=== PATIENT | male | born 1925 | race Caucasian/White ===

== ENCOUNTER 2016-06-22 16:36 | Emergency (ER) | payer OTHER ==
[2016-06-22 16:45] VITALS: TEMP 97.9
--- NOTE | 2016-06-22 17:01 | CPEKG ---
Heart Rate: 51 RR Interval: 1176 P-R Interval: 188 QRSD Interval: 92 QT Interval: 440 QTC Interval: 406 P [place]: 17 QRS [place]: -4 T Wave [place]: 191 EKG Severity - ABNORMAL ECG - EKG Impression: SINUS RHYTHM EKG Impression: MULTIFORM VENTRICULAR PREMATURE COMPLEXES EKG Impression: NONSPECIFIC T ABNORMALITIES, LATERAL LEADS Electronically Signed By: Darin Valentine 23-Jun-2016 14:22:51
[2016-06-22 17:21] LABS: % IMMATURE GRANULYOCYTES 0.3 % (0.0-1.1); ABSOLUTE IMMATURE GRANULOCYTES 0.02 10^3/uL (0.00-0.10); ADD DIFF? NO; ADD MORPH? NO; ADD SCAN? NO; ATYPICAL LYMPHOCYTE FLAG 10 (0-99); FRAGMENT RBC FLAG 0 (0-99); HEMATOCRIT 37.8 % (40.0-51.0); HEMOGLOBIN 12.7 g/dL (13.7-17.5); LEFT SHIFT FLG 0 (0-99); LIPEMIA HEMOLYSIS FLAG 80 (0-99); MEAN CELL HEMOGLOBIN 31.4 pg (27.9-34.1); MEAN CELL HEMOGLOBIN CONCENTR. 33.6 g/dL (32.4-36.7); MEAN CELL VOLUME 93.6 fL (81.5-99.8); MEAN PLATELET VOLUME 11.7 fL (8.7-11.7); PLATELET CLUMPS FLAG 10 (0-99); PLATELET COUNT 141 10^3/uL (150-400); RED BLOOD CELL COUNT 4.04 10^6/uL (4.40-6.38); RED CELL DISTRIBUTION WIDTH 14.7 % (11.5-15.2)
[2016-06-22 17:33] LABS: CALCIUM 8.4 mg/dL (8.5-10.4); CREATININE 1.3 mg/dL (0.7-1.3); POTASSIUM 4.6 mEq/L (3.5-5.2)
[2016-06-22 17:44] VITALS: PULSE 88; RESP 18
[2016-06-22 17:46] LABS: TROPONIN I 0.014 ng/mL (0-0.034)
--- NOTE | 2016-06-22 18:27 | UCPHY ---
H & P Patient Type: Established Chief Complaint Nursing Narrative: feeling weak and tired and c/o sob x 2 days. denies chest pain, cough or fever Time Seen by Provider: 06/22/16 17:04 HPI/ROS: Chief Complaint: Cough, shortness of breath, fatigue HPI: 89-year-old male presenting with 3 days of worsening fatigue, cough which is nonproductive and associated shortness of breath with ambulation. Patient had a similar episode last fall which was admitted to the hospital with pneumonia and required a prolonged rehabilitation stay. Denies any chest pain. Some associated shortness of breath particularly with exertion. No nausea or vomiting. No fevers or chills. Cough is productive of scant sputum. ROS: 10 point Review of Systems is negative except as noted in the HPI. PMH: Hypothyroidism, hypercholesterolemia, pneumonia, DVT, "heart problem" Medications: Pravastatin, levothyroxine, amiodarone Allergies: Penicillin and tetanus Social History: No smoking, no alcohol, no recreational drug use Family History: non-contributory Physical Exam: Gen: Awake, Alert, frail-appearing HEENT: Nose: no rhinorrhea Eyes: PERRLA, EOMI Mouth: Moist mucosa Neck: Supple, no JVD Chest: nontender, diminished breath sounds at the right base with some moderate crackles Heart: S1, S2 normal, no murmur Abd: Soft, non-tender, no guarding Back: no CVA tenderness, no midline tenderness Ext: 2+ nonpitting edema, mild tenderness, no erythema Skin: no rash Neuro: CN II-XII intact, Sensation grossly intact, Strength 5/5 in bilateral upper and lower extremities - Personal History Tetanus Vaccine Date: unsure - Medical/Surgical History Hx Asthma: No Hx Chronic Respiratory Disease: No Hx Diabetes: No Hx Cardiac Disease: Yes Hx Renal Disease: No Hx Cirrhosis: No Hx Alcoholism: No Hx HIV/AIDS: No Hx Splenectomy or Spleen Trauma: No Other PMH: htn - Family History Significant Family History: No pertinent family hx - Social History Smoking Status: Never smoked Constitutional: Initial Vital Signs Temperature (C) 36.6 C 06/22/16 16:41 Heart Rate 38 L 06/22/16 16:41 Respiratory Rate 20 06/22/16 16:41 Blood Pressure 157/65 H 06/22/16 16:41 O2 Sat (%) 90 L 06/22/16 16:41 O2 Delivery Mode Nasal Cannula O2 (L/minute) 2 Allergies/Adverse Reactions: Penicillins Allergy (Verified 05/01/15 17:49) Tetanus Vaccines and Toxoid [Tetanus Vaccines & Toxoid] Allergy (Verified 17:49) Home Medications: Medication Instructions Recorded Levothyroxine Sodium 03/02/15 Pravastatin Sodium 03/02/15 Ranitidine HCl 05/01/15 Medical Decision Making - Diagnostics EKG Interpretation: ECG time 4:59 p.m., sinus rhythm with a normal axis, normal intervals, nonspecific T-wave abnormalities in lateral leads, no acute ST or T wave segment changes, frequent PVCs Imaging Results: Imaging Impressions Chest X-Ray 06/22/16 17:12 Impression: Right lower lobe pneumonia versus atelectasis with associated small subpulmonic effusion. ED Course/Re-evaluation: Patient has a infiltrate on chest x-ray consistent with pneumonia. Patient is also hypoxemic to the 90s on room air and fatigue. Has a recent admission several months ago for pneumonia as well. Patient will require admission at this time. I have discussed with patient's family. He is requesting to go to [facility]. I will call the hospitalist for admission. He is refusing ambulance transport would like to go in a private vehicle. I have discussed with Dr. Mccall, hospitalist at [facility]. She will accept the patient transfer. He is penicillin allergic but per [facility]'s records has taken ceftriaxone before. I will give him doxycycline here, she will give IV sex trach some once he gets there. Blood cultures have been sent. - Data Points Laboratory Results: Laboratory Results 06/22/16 17:07 06/22/16 17:07 06/22/16 06/22/16 06/22/16 18:20 17:07 17:07 WBC 5.81 10^3/uL 10^3/uL (3.80-9.50) RBC 4.04 10^6/uL L 10^6/uL (4.40-6.38) Hgb 12.7 g/dL L g/dL (13.7-17.5) Hct 37.8 % L % (40.0-51.0) MCV 93.6 fL fL (81.5-99.8) MCH 31.4 pg pg (27.9-34.1) MCHC 33.6 g/dL g/dL (32.4-36.7) RDW 14.7 % % (11.5-15.2) Plt Count 141 10^3/uL L 10^3/uL (150-400) MPV 11.7 fL fL (8.7-11.7) Neut % (Auto) 50.3 % % (39.3-74.2) Lymph % (Auto) 31.0 % % (15.0-45.0) [place] % (Auto) 10.8 % % (4.5-13.0) Eos % (Auto) 6.7 % % (0.6-7.6) Baso % (Auto) 0.9 % % (0.3-1.7) Nucleat RBC Rel Count 0.0 % % (0.0-0.2) Absolute Neuts (auto) 2.92 10^3/uL 10^3/uL (1.70-6.50) Absolute Lymphs (auto) 1.80 10^3/uL 10^3/uL (1.00-3.00) Absolute Monos (auto) 0.63 10^3/uL 10^3/uL (0.30-0.80) Absolute Eos (auto) 0.39 10^3/uL 10^3/uL (0.03-0.40) Absolute Basos (auto) 0.05 10^3/uL 10^3/uL (0.02-0.10) Absolute Nucleated RBC 0.00 10^3/uL 10^3/uL (0-0.01) Immature Gran % 0.3 % % (0.0-1.1) Immature Gran # 0.02 10^3/uL 10^3/uL (0.00-0.10) Sodium 139 mEq/L mEq/L (134-144) Potassium 4.6 mEq/L mEq/L (3.5-5.2) Chloride 105 mEq/L mEq/L (97-110) Carbon Dioxide 20 mEq/l L mEq/l (22-31) Anion Gap 14 mEq/L mEq/L (8-16) BUN 21 mg/dL mg/dL (7-23) Creatinine 1.3 mg/dL mg/dL (0.7-1.3) Estimated GFR 52 Glucose 89 mg/dL mg/dL (70-100) Calcium 8.4 mg/dL L mg/dL (8.5-10.4) Troponin I 0.014 ng/mL ng/mL (0-0.034) Urine Color YELLOW Urine Appearance CLEAR Urine pH 5.5 (5.0-7.5) Ur Specific [place] 1.020 (1.002-1.030) Urine Protein 1+ H (NEGATIVE) Urine Ketones NEGATIVE (NEGATIVE) Urine Blood NEGATIVE (NEGATIVE) Urine Nitrate NEGATIVE (NEGATIVE) Urine Bilirubin NEGATIVE (NEGATIVE) Urine Urobilinogen 0.2 EU EU (0.2-1.0) Ur Leukocyte Esterase NEGATIVE (NEGATIVE) Urine RBC Pending Urine WBC Pending Ur Epithelial Cells Pending Urine Glucose NEGATIVE (NEGATIVE) Departure - Dep[facility]ure [facility] Condition: Fair Referrals: Nam Vargas MD [Primary Care Provider] - As per Instructions - PQRS PQRS Measurement: 134: Depression screening and followup, PRIME MD-PHQ2 (12 years and older) Over the last 2 weeks, how often have you been bothered by any of the following problems? 1. Feeling down, depressed, or hopeless? 2. Little interest or pleasure in doing things? Patient answered no to both 1 and 2 130: Documentation of medications. Reviewed all patient medications, doses, route and frequency. 226: Do you smoke? No. 47: 65 and older: Advanced care planning. Patient designates surrogate decision maker as daughter. Patient has advanced directive. 51: 18 years old and older with diagnosis of COPD, spirometry performance. Patient has no history of COPD 52: 18 years old and older with COPD and symptoms of COPD or FEV1<60% predicted prescribed a B Agonist. Spirometry not performed; equipment not available.
[2016-06-22 18:31] LABS: COLOR YELLOW; LEUKOCYTE ESTERASE,URINE NEGATIVE (NEGATIVE); NITRITE,URINE NEGATIVE (NEGATIVE); PH,URINE 5.5 (5.0-7.5)
[2016-06-22] MEDS ORDERED: DOXYCYCLINE HYCLATE 100 MG CAP/TAB PO ONE (18:51)
[2016-06-22 18:52] LABS: BACTERIA 1+ /hpf (NONE SEEN); GRANULAR CASTS OCCASIONAL /lpf (0-1); MUCUS 2+ /lpf (NONE-1+); RBC,URINE NONE SEEN /hpf (0-3)
[2016-06-22 19:01] VITALS: BP 156/77; O2SAT 94
== END 2016-06-22 19:20 | disposition short-term general hospital (02) ==
LOC: CED 16:36
DX: J18.1 Lobar pneumonia, unspecified organism (principal)
CPT/HCPCS: 71020; 93005; G0463; 80048-PO; 81003-PO; 81015-PO; 84484-PO; 85025-PO; 93010-PO; 99215-PO

== ENCOUNTER 2016-11-30 11:09 | Inpatient (IN) | payer OTHER ==
[2016-11-30 13:02] LABS: % IMMATURE GRANULYOCYTES 0.7 % (0.0-1.1); ABSOLUTE IMMATURE GRANULOCYTES 0.03 10^3/uL (0.00-0.10); ABSOLUTE NRBC COUNT 0.02 10^3/uL (0-0.01); ADD DIFF? NO; ADD MORPH? NO; ADD SCAN? NO; ATYPICAL LYMPHOCYTE FLAG 60 (0-99); FRAGMENT RBC FLAG 0 (0-99); HEMATOCRIT 39.4 % (40.0-51.0); HEMOGLOBIN 12.8 g/dL (13.7-17.5); LEFT SHIFT FLG 0 (0-99); LIPEMIA HEMOLYSIS FLAG 80 (0-99); MEAN CELL HEMOGLOBIN 30.5 pg (27.9-34.1); MEAN CELL HEMOGLOBIN CONCENTR. 32.5 g/dL (32.4-36.7); MEAN CELL VOLUME 93.8 fL (81.5-99.8); MEAN PLATELET VOLUME 12.7 fL (8.7-11.7); NRBC-AUTO% 0.5 % (0.0-0.2); PLATELET CLUMPS FLAG 0 (0-99); PLATELET COUNT 132 10^3/uL (150-400); RED CELL DISTRIBUTION WIDTH 14.5 % (11.5-15.2)
[2016-11-30 13:09] LABS: INR 1.16 (0.83-1.16); PROTIME(PATIENT) 14.8 SEC (12.0-15.0)
[2016-11-30 13:10] LABS: APTT 31.4 SEC (23.0-38.0)
[2016-11-30 13:13] LABS: ANION GAP 12 mEq/L (8-16); CALCIUM 9.2 mg/dL (8.5-10.4); CARBON DIOXIDE 20 mEq/l (22-31); CHLORIDE 107 mEq/L (97-110); CREATININE 1.3 mg/dL (0.7-1.3); GLOMERULAR FILTRATION RATE 52; GLUCOSE 155 mg/dL (70-100); POTASSIUM 4.2 mEq/L (3.5-5.2); SODIUM 139 mEq/L (134-144)
--- NOTE | 2016-11-30 13:35 | CPEKG ---
Heart Rate: 95 RR Interval: 632 P-R Interval: 208 QRSD Interval: 88 QT Interval: 340 QTC Interval: 428 P [place]: 37 QRS [place]: 6 T Wave [place]: 216 EKG Severity - ABNORMAL ECG - EKG Impression: SINUS RHYTHM EKG Impression: VENTRICULAR BIGEMINY EKG Impression: CONSIDER POSTERIOR INFARCT EKG Impression: ABNORMAL T, CONSIDER ISCHEMIA, LATERAL LEADS Electronically Signed By: Abel Pozo 01-Dec-2016 17:30:25
--- NOTE | 2016-11-30 13:46 | PDCARPN ---
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 Symptoms and dyspnea and fatigue. Admitted today for Sotalol titration. #. PVCs: pt noted to have low HR and found to have PVC burden contributing electrically to low cardiac output admitted for Sotalol titration/ will start at 120 BID if PVC suppression not achieved within 3 doses will trial IV Amiodarone #. hypoT: home meds will be continued #. dyslipidemia: on Pravastatin #. hyperglycemia: check HbA1C #. LOS: admit inpt for high-risk med titration #. DVT ppx: plan for early ambulation Plan: Start Sotalol now 11/30/16 15:01 Subjective: Sleeping but is arouseable. Daughter answers questions. No significant symptoms currently. Objective: Vital Signs (8 Hrs) Temp Pulse Resp BP Pulse Ox 11/30/16 12:05 97.3 F 35 L 16 131/61 H 93 Intake/Output (24 Hrs) 11/29/16 11/30/16 12/01/16 05:59 05:59 05:59 Other: Weight 79.2 kg Result Diagrams: 11/30/16 12:30 11/30/16 12:30 EKG: SR with bigeminal PVCs Telemetry: frequent PVCs - Physical Exam Constitutional: no apparent distress Eyes: PERRL Cardiovascular: regular rate and rhythm Respiratory: clear to auscultate bilat (anterior dimas) Psychiatric: No anxious ICD10 Worksheet Patient Problems: Problems Problem Status Onset PVC (premature ventricular contraction) Acute - ICD10 Problem Qualifiers (1) PVC (premature ventricular contraction)
[2016-11-30] MEDS ORDERED: SOTALOL HCL 80 MG TAB PO SCH ×2 (14:00→21:00)
[2016-11-30] MEDS ORDERED: SOTALOL HCL 80 MG TAB PO ONE ×2 (14:00→22:00)
[2016-11-30 15:52] LABS: HEMOGLOBIN A1C 5.8 % (4.0-6.0)
--- NOTE | 2016-11-30 16:05 | CPEKG ---
Heart Rate: 98 RR Interval: 612 P-R Interval: 232 QRSD Interval: 84 QT Interval: 368 QTC Interval: 470 P [place]: 36 QRS [place]: 4 T Wave [place]: 193 EKG Severity - ABNORMAL ECG - EKG Impression: SINUS RHYTHM EKG Impression: VENTRICULAR BIGEMINY EKG Impression: FIRST DEGREE AV BLOCK EKG Impression: CONSIDER POSTERIOR INFARCT Electronically Signed By: Abel Pozo 01-Dec-2016 17:30:05
[2016-11-30] MEDS: MELATONIN 3 MG TAB PO SCH (23:05)
[2016-11-30] MEDS: PRAVASTATIN SODIUM 10 MG TAB PO SCH (23:06)
--- NOTE | 2016-12-01 01:05 | CPEKG ---
Heart Rate: 90 RR Interval: 667 P-R Interval: 222 QRSD Interval: 86 QT Interval: 392 QTC Interval: 480 P [place]: 42 QRS [place]: -1 T Wave [place]: -69 EKG Severity - ABNORMAL ECG - EKG Impression: SINUS RHYTHM EKG Impression: PAIRED VENTRICULAR PREMATURE COMPLEXES EKG Impression: FIRST DEGREE AV BLOCK EKG Impression: BORDERLINE T ABNORMALITIES, DIFFUSE LEADS Electronically Signed By: Antoinette Costa 01-Dec-2016 06:47:15
[2016-12-01 05:37] LABS: INR 1.18 (0.83-1.16)
[2016-12-01 05:42] LABS: ANION GAP 10 mEq/L (8-16); CALCIUM 8.8 mg/dL (8.5-10.4); CARBON DIOXIDE 19 mEq/l (22-31); CHLORIDE 110 mEq/L (97-110); CREATININE 1.4 mg/dL (0.7-1.3); GLOMERULAR FILTRATION RATE 48; GLUCOSE 85 mg/dL (70-100); MAGNESIUM 2.1 mg/dL (1.6-2.3); POTASSIUM 4.6 mEq/L (3.5-5.2); SODIUM 139 mEq/L (134-144)
[2016-12-01] MEDS ORDERED: VITAMIN B COMPLEX 1 EA CAP/TAB PO SCH (09:00)
[2016-12-01] MEDS ORDERED: SOTALOL HCL 80 MG TAB PO SCH (09:00)
[2016-12-01] MEDS: LEVOTHYROXINE 100 MCG TAB PO SCH (09:07)
[2016-12-01] MEDS: VITAMIN B COMPLEX 1 EA CAP/TAB PO SCH (09:07)
[2016-12-01] MEDS ORDERED: FLU VACC QS 2017-18 (3YR+)/PF 0.5 ML SYR (FLUARIX QUAD) IM ONE (10:23)
--- NOTE | 2016-12-01 11:59 | CPEKG ---
Heart Rate: 73 RR Interval: 822 QRSD Interval: 90 QT Interval: 448 QTC Interval: 494 QRS [place]: 7 T Wave [place]: 225 EKG Severity - ABNORMAL ECG - EKG Impression: Sinus rhythm with first degree av block EKG Impression: ATRIAL FIBRILLATION EKG Impression: VENTRICULAR BIGEMINY EKG Impression: NONSPECIFIC T ABNORMALITIES, DIFFUSE LEADS Electronically Signed By: Abel Pozo 01-Dec-2016 17:29:43
[2016-12-01] MEDS: TEARS/DEXTRAN 70/HYPROMELLOSE 15 ML OPHT.BTL EACHEYE PRN ×2 (12:42→17:56)
--- NOTE | 2016-12-01 16:17 | PDCARPN ---
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 Symptoms of dyspnea and fatigue. Admitted today for Sotalol titration. No significant reduction in PVC burden noted. #. PVCs: pt noted to have low HR and found to have PVC burden contributing electrically to low cardiac output admitted for Sotalol titration/ given Cr Cl he is really to only have once daily dosing since PVC suppression not achieved within 3 doses will trial IV Amiodarone/ allow washout of Sotalol overnight #. hypoT: home meds will be continued #. dyslipidemia: on Pravastatin #. hyperglycemia: HbA1C wnl #. LOS: admit inpt for high-risk med titration #. DVT ppx: plan for early ambulation Plan: Sotalol [place]out and IV Amiodarone tomorrow 12/01/16 16:15 Subjective: No significant symptoms. Reviewed/Discussed With: other (Dr. Mittal) Objective: Vital Signs (8 Hrs) Temp Pulse Resp BP Pulse Ox 12/01/16 15:11 97.7 F 75 16 92/51 L 92 12/01/16 12:00 97.8 F 74 12 127/61 H 94 12/01/16 09:00 97.5 F 80 18 124/60 H 94 Intake/Output (24 Hrs) 11/30/16 12/01/16 12/02/16 05:59 05:59 05:59 Intake Total 500 Balance 500 Intake: Oral (ml) 500 Other: Weight 79.2 kg Number of Voids Toilet 2 Result Diagrams: 11/30/16 12:30 12/01/16 04:54 EKG: SR with freq PVCs QTCB 490 Telemetry: SB/PVCs - Physical Exam Constitutional: no apparent distress Eyes: PERRL Cardiovascular: regular rate and rhythm Gastrointestinal: normoactive bowel sounds Musculoskeletal: no muscular tenderness, no joint effusions Psychiatric: cooperative, interactive ICD10 Worksheet Patient Problems: Problems Problem Status Onset PVC (premature ventricular contraction) Acute - ICD10 Problem Qualifiers (1) PVC (premature ventricular contraction)
--- NOTE | 2016-12-01 16:17 | ASMTCASEMG ---
Living Arrangements What is your living Answers: With Child(kamla) arrangement? Who do you live with? Type Of Residence What kind of residence do Answers: House you live in? Discharge Plan Comments Coordination Status Comments Notes: Chart reviewed and spoke obb Matute RN, pt is a 89 y/o man that has been admitted for sotalol loading. Pt is currently having sotalol therapy. PT is ordered and CM is awaiting for recommendation. Needs are TBD. CM to follow. Date Signed: 12/01/2016 04:16 PM Electronically Signed By:JOSE Adan
[2016-12-01] MEDS: MELATONIN 3 MG TAB PO SCH (19:16)
[2016-12-01] MEDS: PRAVASTATIN SODIUM 10 MG TAB PO SCH (19:16)
[2016-12-01] MEDS: TEARS/DEXTRAN 70/HYPROMELLOSE 15 ML OPHT.BTL EACHEYE SCH (19:17)
[2016-12-02 05:33] LABS: ANION GAP 10 mEq/L (8-16); CALCIUM 8.6 mg/dL (8.5-10.4); CARBON DIOXIDE 18 mEq/l (22-31); CHLORIDE 108 mEq/L (97-110); CREATININE 1.4 mg/dL (0.7-1.3); GLOMERULAR FILTRATION RATE 48; GLUCOSE 84 mg/dL (70-100); POTASSIUM 4.7 mEq/L (3.5-5.2); SODIUM 136 mEq/L (134-144)
[2016-12-02] MEDS: LEVOTHYROXINE 100 MCG TAB PO SCH (07:18)
[2016-12-02] MEDS ORDERED: AMIODARONE HCL 100 ML IV ONE (08:59)
[2016-12-02] MEDS ORDERED: AMIODARONE HCL 200 ML IV ONE (09:30)
--- NOTE | 2016-12-02 10:15 | CPEKG ---
Heart Rate: 78 RR Interval: 769 P-R Interval: 212 QRSD Interval: 88 QT Interval: 346 QTC Interval: [address]: [address]: [address]: 210 EKG Severity - ABNORMAL ECG - EKG Impression: SINUS RHYTHM EKG Impression: VENTRICULAR BIGEMINY EKG Impression: NONSPECIFIC REPOL ABNORMALITY, DIFFUSE LEADS Electronically Signed By: Darin Valentine 05-Dec-2016 17:37:44
[2016-12-02] MEDS: TEARS/DEXTRAN 70/HYPROMELLOSE 15 ML OPHT.BTL EACHEYE SCH ×2 (10:47→21:53)
[2016-12-02] MEDS: VITAMIN B COMPLEX 1 EA CAP/TAB PO SCH (10:47)
--- NOTE | 2016-12-02 12:43 | ASMTCMCOM ---
CM Note CM Note Notes: CM spoke w/ Juju RN regarding d/c POC. Pt will most likely discharge independent w/ supportive family when medically stable. CM available for changes. Date Signed: 12/02/2016 12:42 PM Electronically Signed By:JOSE Adan
--- NOTE | 2016-12-02 15:46 | PDCARPN ---
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 Symptoms of dyspnea and fatigue. Admitted today for Sotalol titration. No significant reduction in PVC burden noted. #. PVCs: pt noted to have low HR and found to have PVC burden contributing electrically to low cardiac output Amiodarone does not appear to have suppressed PVCs Dr. Mittal will further assess in AM #. hypoT: home meds will be continued #. dyslipidemia: on Pravastatin #. hyperglycemia: HbA1C wnl #. LOS: admit inpt for high-risk med titration #. DVT ppx: plan for early ambulation Plan: Stay on Amiodarone 12/02/16 15:43 Subjective: Feels stable. Objective: Vital Signs (8 Hrs) Temp Pulse Resp BP Pulse Ox 12/02/16 15:24 97.3 F 69 12 108/69 96 12/02/16 12:00 80 16 127/61 H 96 12/02/16 08:00 95.7 F L 55 L 18 138/78 H Intake/Output (24 Hrs) 12/01/16 12/02/16 12/03/16 05:59 05:59 05:59 Intake Total 500 1400 180 Balance 500 1400 180 Intake: Oral (ml) 500 1400 180 Other: Weight 79.2 kg Intake Quantity Yes Sufficient Number of Voids Toilet 2 1 Number of Stools Toilet 1 Result Diagrams: 11/30/16 12:30 12/02/16 04:38 Telemetry: SR with PVCs - Physical Exam Constitutional: no apparent distress Ears, Nose, Mouth, Throat: moist mucous membranes, poor dentition Cardiovascular: regular rate and rhythm Respiratory: clear to auscultate bilat (anterior dimas) Gastrointestinal: normoactive bowel sounds Neurologic: AAOx3 Psychiatric: cooperative, interactive ICD10 Worksheet Patient Problems: Problems Problem Status Onset PVC (premature ventricular contraction) Acute - ICD10 Problem Qualifiers (1) PVC (premature ventricular contraction)
[2016-12-02] MEDS ORDERED: AMIODARONE HCL 540 MG in D5W 300 ML IV ONE (17:00)
[2016-12-02] MEDS: MELATONIN 3 MG TAB PO SCH (20:08)
[2016-12-02] MEDS: PRAVASTATIN SODIUM 10 MG TAB PO SCH (20:09)
[2016-12-02] MEDS: TEARS/DEXTRAN 70/HYPROMELLOSE 15 ML OPHT.BTL EACHEYE PRN (20:11)
[2016-12-03] MEDS: LEVOTHYROXINE 100 MCG TAB PO SCH (06:45)
[2016-12-03] MEDS ORDERED: DIAZEPAM 5 MG TAB PO ONE (08:29)
[2016-12-03] MEDS ORDERED: BACITRACIN IRRIGATION/NS 50,000 UNITS/1,000 ML BTL IRR ONE (08:29)
[2016-12-03] MEDS ORDERED: diphenhydrAMINE 25 MG CAP PO ONE (08:29)
[2016-12-03] MEDS ORDERED: NS 1,000 ML IV ONE (08:29)
[2016-12-03] MEDS: AMIODARONE HCL 200 MG TAB PO SCH (08:57)
[2016-12-03] MEDS: VITAMIN B COMPLEX 1 EA CAP/TAB PO SCH (08:57)
[2016-12-03] MEDS: TEARS/DEXTRAN 70/HYPROMELLOSE 15 ML OPHT.BTL EACHEYE SCH ×2 (08:58→19:39)
[2016-12-03] MEDS ORDERED: LIDO/EPI 1% **for epidural** 30 ML SDV ONE (09:22)
[2016-12-03] MEDS ORDERED: LIDOCAINE 1% 300 MG/30 ML SDV ONE (09:22)
[2016-12-03] MEDS ORDERED: BUPIVACAINE 0.5% 30 ML SDV ONE (09:22)
[2016-12-03] MEDS ORDERED: fentaNYL 100 MCG/2 ML INJ ONE (09:28)
[2016-12-03] MEDS ORDERED: MIDAZOLAM 2 MG/2 ML VIAL ONE (09:28)
[2016-12-03] MEDS ORDERED: VANCOMYCIN HCL/NORMAL SALINE 250 ML IV ONE (09:34)
--- NOTE | 2016-12-03 10:15 | PDPROPOC ---
Sedation Plan of Care Sedation Plan of Care: vital signs stable, mental status noted, patient educated of risks, benefits, alternatives, patient can tolerate sedation ASA Classification: ASA 3 Planned drugs: fentanyl, midazolam Mallampati Score: Class 3 Mallampati Reference Image: Patient passed 3-3-2 rule?: Yes
--- NOTE | 2016-12-03 10:16 | PDHPUP ---
History & Physical Update H&P update statement: This history and physical update is based on an assessment of the patient which was completed after admission or registration (within 24 hours), but prior to the surgery/procedure. H&P update: H&P reviewed & patient examined, no change in patient's condition since H&P completed
[2016-12-03] MEDS ORDERED: VANCOMYCIN HCL/NORMAL SALINE 250 ML IV SCH (11:30)
--- NOTE | 2016-12-03 12:07 | CPEKG ---
Heart Rate: 88 RR Interval: 682 P-R Interval: 180 QRSD Interval: 168 QT Interval: 480 QTC Interval: 581 QRS [place]: -106 T Wave [place]: 23 EKG Severity - ABNORMAL ECG - EKG Impression: VENTRICULAR-PACED COMPLEXES EKG Impression: RIGHT BUNDLE BRANCH BLOCK EKG Impression: VENTRICULAR PACING IS NEW IN COMPARISON TO PRIOR ECG (SINUS BRADYCARDIA) Electronically Signed By: Darin Valentine 05-Dec-2016 17:38:17
[2016-12-03] MEDS ORDERED: ACETAMINOPHEN 325 MG TAB ONE (13:54)
[2016-12-03] MEDS: MELATONIN 3 MG TAB PO SCH (19:38)
[2016-12-03] MEDS: PRAVASTATIN SODIUM 10 MG TAB PO SCH ×2 (19:38→19:39)
[2016-12-03] MEDS: HYDROCODONE/APAP 5/325 TAB PO PRN ×2 (20:33→23:58)
[2016-12-04 05:40] LABS: % IMMATURE GRANULYOCYTES 0.2 % (0.0-1.1); ABSOLUTE IMMATURE GRANULOCYTES 0.01 10^3/uL (0.00-0.10); ADD DIFF? NO; ADD MORPH? NO; ADD SCAN? NO; ATYPICAL LYMPHOCYTE FLAG 10 (0-99); FRAGMENT RBC FLAG 0 (0-99); HEMATOCRIT 37.8 % (40.0-51.0); HEMOGLOBIN 12.4 g/dL (13.7-17.5); LEFT SHIFT FLG 0 (0-99); LIPEMIA HEMOLYSIS FLAG 80 (0-99); MEAN CELL HEMOGLOBIN 30.8 pg (27.9-34.1); MEAN CELL HEMOGLOBIN CONCENTR. 32.8 g/dL (32.4-36.7); MEAN CELL VOLUME 93.8 fL (81.5-99.8); MEAN PLATELET VOLUME 11.9 fL (8.7-11.7); PLATELET CLUMPS FLAG 10 (0-99); PLATELET COUNT 116 10^3/uL (150-400); RED BLOOD CELL COUNT 4.03 10^6/uL (4.40-6.38); RED CELL DISTRIBUTION WIDTH 14.4 % (11.5-15.2)
--- NOTE | 2016-12-04 05:42 | CPEKG ---
Heart Rate: 89 RR Interval: 674 P-R Interval: 132 QRSD Interval: 164 QT Interval: 448 QTC Interval: 546 QRS [place]: -107 T Wave [place]: 12 EKG Severity - ABNORMAL ECG - EKG Impression: INTERMITTENT VENTRICULAR-PACED COMPLEXES EKG Impression: RIGHT BUNDLE BRANCH BLOCK EKG Impression: UNDERLYING RHYTHM APPEARS TO BE SINUS BRADYCARDIA WITH A PACING Electronically Signed By: Bebo Piper 05-Dec-2016 19:03:48
[2016-12-04 05:59] LABS: ANION GAP 10 mEq/L (8-16); CALCIUM 8.6 mg/dL (8.5-10.4); CARBON DIOXIDE 18 mEq/l (22-31); CHLORIDE 109 mEq/L (97-110); CREATININE 1.3 mg/dL (0.7-1.3); GLOMERULAR FILTRATION RATE 52; GLUCOSE 88 mg/dL (70-100); POTASSIUM 4.7 mEq/L (3.5-5.2); SODIUM 137 mEq/L (134-144)
[2016-12-04] MEDS: LEVOTHYROXINE 100 MCG TAB PO SCH ×2 (07:55→09:33)
[2016-12-04] MEDS: HYDROCODONE/APAP 5/325 TAB PO PRN (07:55)
[2016-12-04] MEDS ORDERED: VANCOMYCIN HCL/NORMAL SALINE 250 ML IV SCH (09:00)
[2016-12-04] MEDS: AMIODARONE HCL 200 MG TAB PO SCH (09:32)
[2016-12-04] MEDS: VITAMIN B COMPLEX 1 EA CAP/TAB PO SCH (09:32)
[2016-12-04] MEDS: TEARS/DEXTRAN 70/HYPROMELLOSE 15 ML OPHT.BTL EACHEYE SCH ×2 (09:34→23:55)
--- NOTE | 2016-12-04 09:45 | SOAPPROG ---
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 Wiht Amiodarone, marginal decrease in PVC. PPM implanted. With overdrive pacing PVC stop. Will get him up and moving to see increase in energy levels. PPM: Functioning well. LRL set to suppress PVC for now. Will reassess after three weeks to see impact of Amiodarone and see if LRL can be brought done. CXR today shows good lead position. PPM checked, numbers normal. PVC: Decrease with amiodarone but not elimination. With increased HR, PVCs are supressed. Continue amiodarone for now. will reassess the need for it in three weeks. BP: Stable here. continue with current dose of amlodipine. discharge: family wants inpatient rehab. marketing information manager has discussed with the family and the transition to inpatient rehab is in process with current eval. 12/04/16 09:40 Subjective: Pt doing well.Spends a lot of time in bed. Encouraged to be out of bed into chair. Objective: Vital Signs Temp Pulse Resp BP Pulse Ox 36.9 C 84 16 106/84 H 91 L 12/04/16 04:00 12/04/16 04:00 12/04/16 04:00 12/04/16 04:00 12/04/16 04:00 Laboratory Results 12/04/16 05:21 12/04/16 05:21 12/03/16 12/04/16 12/05/16 05:59 05:59 05:59 Intake Total 700 650 Output Total 160 160 Balance 540 490 PT 15.0 SEC (12.0-15.0) 12/01/16 04:54 INR 1.18 (0.83-1.16) H 12/01/16 04:54 Physical Exam - Physical Exam General Appearance: alert, no apparent distress EENT: PERRL/EOMI, normal ENT inspection Neck: non-tender, full range of motion, supple Respiratory: chest non-tender, lungs clear, normal breath sounds Cardiac/Chest: regular rate, rhythm, No edema, No gallop Abdomen: normal bowel sounds, non-tender, soft, No organomegaly Skin: normal color, warm/dry ICD10 Worksheet Patient Problems: Problems Problem Status Onset PVC (premature ventricular contraction) Acute
--- NOTE | 2016-12-04 12:31 | EPPROC ---
Electrophysiology Procedure Note: PROCEDURE PERFORMED: Implantation of an A/V Pacemaker Subclavian vein angiography Fluoroscopy INDICATION: This is a 89 yr old with 43K PVCs associated with low HR and pt had low energy secondary to that. He was brought to the hospital and SOtalol was given with no impact on PVCs. However, when AMiodarone was given his PVC burden decreased but so did his HR. In order to treat his SSS it was decided to implant a dual chamber pacemaker so that he can tolerate Amiodarone., PROCEDURE NOTE: Patient presented to the cardiac catheterization laboratory in a fasting, post absorptive state. Cardiac laboratory analyst nurse administered moderate sedation. The left infraclavicular area was prepped and draped in the usual sterile fashion. Lidocaine plus bupivacaine was used for local anesthesia. Left subclavian venography was performed by injection of iodinated contrast into the left antecubital vein. This was done to assure patency of the vein and also to assess for any anatomical aberrations. Using a combination of blunt and sharp dissection and electrocautery, the dissection was carried down to the prepectoral fascia. All bleeding was controlled with electrocautery. Fluoroscopy was utilized during the entire procedure for venous access and placement of the leads. Using the usual technique, left cephalic vein was accessed and a glidewire was placed. Through this initially a 9F and later a 7F sheath was passed. Placement of the guidewires into the venous system was confirmed by low- pressure blood return and also by visualizing the guidewires advancing into the inferior vena cava. A purse string suture was applied around the guidewires. An active fixation ventricular lead was advanced into the right ventricular apex and screwed in place. An active fixation atrial lead was advanced into the right atrial appendage and screwed in place. The peel away sheaths were removed. Pacing thresholds, sensing parameters and lead impedances were measured. There was no diaphragmatic stimulation at maximum output. The leads were sutured to the prepectoral fascia with 3 nonabsorbable sutures each. The pocket was created and it was flushed using antibiotic solution. It was inspected for any bleeding. The leads were attached to the pacemaker securely. The pacemaker was inserted into the pocket and secured in place with a nonabsorbable suture. Fluoroscopy was performed in [place] and [place] planes to verify right-sided placement of the leads. Also fluoroscopy of the pacemaker pocket was performed. The pacemaker pocket was closed in 3 layers with absorbable vicryl sutures. Steristrips were placed. Appropriate dressing was applied. The patient left the cardiac catheterization laboratory in stable condition. Serial Numbers: Device: [employer] Rosy Gracie TROTTER SN [id number] Atrial Lead: Biotronik Solia S 45 SB [id number] Ventricular Lead: Biotronik Solia S53 SN [id number] Stimulation Thresholds & Impedance Measurements: Atrial Lead 1.7mV, 1.4@0.4ms, 388Ohms Ventricular Lead 6.3mV, 0.7@0.4ms, 577Ohms Filipe Pacing Parameters Pacing mode: DDD Lower rate: 80 Upper tracking rate: 120 Upper sensor rate: 120 Patient Problems: Problems Problem Status Onset PVC (premature ventricular contraction) Acute
--- NOTE | 2016-12-04 16:45 | ASMTCMCOM ---
CM Note CM Note Notes: Reviewed chart, spoke w/ KATHY Major, Dr. Mittal re: d/c poc, pt's progress. Per CASPER Mcleod, pt's family requesting an Inpt Rehab eval. Met w/ pt, pt's dghtr Ivon, and Dr. Mittal to further discuss rehab options. Process explained; questions answered. Dr. Mittal ordered inpt rehab eval for 12/05/16 based on Ivon's request. Met w/ PT/OT to discuss; evals requested. Call received from pt's dghtr Janki (pt's [facility]). Per Janki, she would prefer the pt go to [facility] ([facility]) located at [address] [place] [address] P: [phone]. Update provided to KATHY Major; PT/OT; Ivon. Will fax new referral. Per Jakni, facility is already aware and willing to accept pt. LVM for Tara at inpt rehab w/ update. Waiting to here back from [facility] on acceptance; CM will cont to follow. Date Signed: 12/04/2016 04:45 PM Electronically Signed By:Angelique Cheek RN
--- NOTE | 2016-12-04 16:52 | ASMTCMCOM ---
CM Note CM Note Notes: Amendment to 12/04/16 note - Referral sent to [facility]. Date Signed: 12/04/2016 04:52 PM Electronically Signed By:Angelique Cheek RN
[2016-12-04] MEDS: PRAVASTATIN SODIUM 10 MG TAB PO SCH (20:24)
[2016-12-04] MEDS: MELATONIN 3 MG TAB PO SCH (20:24)
[2016-12-04] MEDS: TEARS/DEXTRAN 70/HYPROMELLOSE 15 ML OPHT.BTL EACHEYE PRN (20:27)
[2016-12-05] MEDS: VITAMIN B COMPLEX 1 EA CAP/TAB PO SCH (09:37)
[2016-12-05] MEDS: AMIODARONE HCL 200 MG TAB PO SCH (09:37)
[2016-12-05] MEDS: TEARS/DEXTRAN 70/HYPROMELLOSE 15 ML OPHT.BTL EACHEYE SCH (09:38)
--- NOTE | 2016-12-05 13:18 | PDIAF ---
- Diagnosis Code Status: Full Code - Medication Management Discharge Medications: Medications to Continue on Transfer Levothyroxine [Synthroid 100 mcg (*)] 100 mcg PO DAILY06 03/02/15 [Last Taken ] Pravastatin Sodium 10 mg PO HS 03/02/15 [Last Taken 11/29/16] Melatonin [Melatonin 3 MG (*)] 3 mg PO HS 11/30/16 [Last Taken 11/29/16] Vitamin B Complex [B Complex] 1 each PO DAILY 11/30/16 [Last Taken 11/30/16] amLODIPine BESYLATE [Norvasc 2.5 mg (*)] 2.5 mg PO HS 11/30/16 [Last Taken 11/29] Amiodarone HCl [Pacerone (*)] 200 mg PO DAILY #30 tab 12/05/16 [Last Taken Unknown] Amiodarone HCl [Pacerone (*)] 400 mg PO DAILY 14 Days #14 tab 12/05/16 [Last Taken Unknown] Tears/Dextran 70/Hypromellose [Natural Balance Tears (*)] 1 drop EACHEYE BID opht.btl 12/05/16 [Last Taken Unknown] Tears/Dextran 70/Hypromellose [Natural Balance Tears (*)] 1 drop EACHEYE Q2 PRN opht.btl 12/05/16 [Last Taken Unknown] Discharge Medications: Refer to the Discharge Home Medication list for PRN reason. - Orders Services needed: Registered Nurse, Certified Security Orderly, Physical Therapy, Occupational Therapy Diet Recommendation: cardiac -low fat low salt Diet Texture: Regular Texture Diet Weigh Patient: weekly Cesar: Not applicable Wound Care Instructions: Leave left pectorus incision dressing in place for one week, then remove. Leave steri strips in place until the peel off on own. Keep area clean with soap and water. No ointments. Sutures/[place] Site: None. incision secured with steri strips Activity/Weight Bearing Restrictions: No activity restrictions. Left arm restrictions-- no lifting, pushing, pulling greater than 10 pounds for 2 weeks. Wear sling at night for first week, longer if needs reminder not to lift arm above shoulder level. Right lower arm redness with no cellulitis---OK the apply warm pack to site if needed. - Follow Up Care Current Providers and Referrals: Nam Vargas MD [Primary Care Provider] - Олег Mittal MD [Medical Doctor] - (Follow up with Dr. Mittal in one month..... Call clinic to set up appointment. [phone])
[2016-12-05 13:19] VITALS: BP 120/88; PULSE 96; RESP 17; TEMP 98.7; O2SAT 92
--- NOTE | 2016-12-05 13:29 | ASMTCMCOM ---
CM Note CM Note Notes: Chart reviewed. Patient medically stable for discharge. Accepted to the [facility]. Discharge interagency form sent as well as dc meds. Family to transport. Prescriptions given. CM available should needs arise. Date Signed: 12/05/2016 01:29 PM Electronically Signed By:Radha Isabel RN
[2016-12-05] MEDS: LEVOTHYROXINE 100 MCG TAB PO SCH (13:30)
--- NOTE | 2016-12-05 13:35 | PDCARPN ---
Cardiology Progress Note Assessment/Plan: Assessment: PVC's: Frequent PVC's with No control on Sotolol. Switched to Amioderone with response. SSS with rate decrease on Amioderone. PPM implanted. With overdrive pacing PVC stop. PPM: Functioning well. LRL set to suppress PVC at this time. Will reassess after three weeks to see impact of Amiodarone and see if LRL can be brought done. CXR shows good lead position. PPM eval showed Normal function. PVC: Decrease with amiodarone but not elimination. With increased HR, PVCs are supressed. Continue amiodarone 400 mg for now. Decrease Amioderone to 200 mg in 2 weeks. Will reassess the need for continued Amioderone in two to three weeks. BP: Stable here. continue with current dose of amlodipine. Discharge to inpatient Rehab by family request. Dr Mittal agrees with plan. conference manager has discussed with the family and the transition to inpatient rehab is in process with current evaluation. [facility] Encourage to be up and ambulating. Biotronic Pacemaker check in one week. Follow up with Dr Mittal in 2 to 3 weeks. 12/05/16 13:25 Objective: Vital Signs (8 Hrs) Temp Pulse Resp BP Pulse Ox 12/05/16 09:00 37.1 C 96 17 120/88 H 92 Intake/Output (24 Hrs) 12/04/16 12/05/16 12/06/16 05:59 05:59 05:59 Intake Total 650 900 Output Total 160 Balance 490 900 Intake: Oral (ml) 150 650 IV Intake (ml) 500 250 Output: Urine (ml) 150 Toilet 150 Estimated Blood Loss (ml) 10 Other: Number of Voids Toilet 1 Urinal 8 Result Diagrams: 12/04/16 05:21 12/04/16 05:21 - Physical Exam Constitutional: no apparent distress Cardiovascular: regular rate and rhythm, no murmurs, no rubs Respiratory: clear to auscultate bilat, no crackles, no wheezes Skin: warm, no edema, other (Left Pec incision site intact w/ no bleeding, enduration, and mild tenderness) Neurologic: AAOx3 Psychiatric: cooperative, interactive ICD10 Worksheet Patient Problems: Problems Problem Status Onset PVC (premature ventricular contraction) Acute S/P placement of cardiac pacemaker Acute
--- NOTE | 2016-12-05 15:30 | ASDISCHSUM ---
Discharge Information Plan Status:SNF Medically Cleared to Leave: Discharge Date:12/05/2016 01:55 PM D/C Disposition:[facility] Facility ADT D/C Disposition:Other Rehab, Not [place] Projected Discharge Date:12/05/2016 11:00 AM Transportation at D/C:Family Discharge Delay Reason: Follow-Up Date:12/05/2016 11:00 AM Discharge Slot: Final Diagnosis: Placement Information Referral Type:*[facility]cf/SNF Ref[facility] ID:[id number] Provider Name:[facility] Address 1:[address] [facility] Address 2: City:[place] Selection Factors: State:[place] Patient Contact Information Contact Name:SARAH PENNINGTON Relationship:Daughter Address:[address] [facility] Work Phone: City:[facility] Phone: State/Zip Code:[place] [address] Email: Financial Information Financial Class:Medicare Advantage Plans Primary Plan Desc:[facility] ADVANTAGE PLAN Primary Plan Number:[id number] Secondary Plan Desc: Secondary Plan Number: Assessment Information [facility] Initial CM Assessment Living Arrangements What is your living Answers: With Child(kamla) arrangement? Who do you live with? Type Of Residence What kind of residence do Answers: House you live in? Discharge Plan Comments Coordination Status Comments Notes: Chart reviewed and spoke w/ Juju RN, pt is a 89 y/o man that has been admitted for sotalol loading. Pt is currently having sotalol therapy. PT is ordered and CM is awaiting for recommendation. Needs are TBD. CM to follow. Date Signed: 12/01/2016 04:16 PM Electronically Signed By:JOSE Adan [facility] CM Progress Note CM Note CM Note Notes: CM spoke w/ KATHY Matute regarding d/c POC. Pt will most likely discharge independent w/ supportive family when medically stable. CM available for changes. Date Signed: 12/02/2016 12:42 PM Electronically Signed By:JOSE Adan [facility] CM Progress Note CM Note CM Note Notes: Reviewed chart, spoke w/ KATHY Major, Dr. Mittal re: d/c poc, pt's progress. Per [facility], pt's family requesting an Inpt Rehab eval. Met w/ pt, pt's dghtleatha Del Valle, and Dr. Mittal to further discuss rehab options. Process explained; questions answered. Dr. Mittal ordered inpt rehab eval for 12/05/16 based on Ivon's request. Met w/ PT/OT to discuss; evals requested. Call received from pt's dghtr Janki (pt's [facility]). Per Janki, she would prefer the pt go to [facility] ([facility]) located at [address] [place] [address] P: [phone]. Update provided to KATHY Major; PT/OT; Ivon. Will fax new referral. Per Janki, facility is already aware and willing to accept pt. LVM for Tara at inpt rehab w/ update. Waiting to here back from [facility] on acceptance; CM will cont to follow. Date Signed: 12/04/2016 04:45 PM Electronically Signed By:Angelique Cheek RN [facility] CM Progress Note CM Note CM Note Notes: Amendment to 12/04/16 note - Referral sent to [facility]. Date Signed: 12/04/2016 04:52 PM Electronically Signed By:Angelique Cheek RN [facility] CM Progress Note CM Note CM Note Notes: Chart reviewed. Patient medically stable for discharge. Accepted to the [facility]. Discharge interagency form sent as well as nv meds. Family to transport. Prescriptions given. CM available should needs arise. Date Signed: 12/05/2016 01:29 PM Electronically Signed By:Radha Isabel RN Intervention Information
--- NOTE | 2016-12-05 19:54 | GDS ---
[f rep st] DISCHARGE SUMMARY ADMIT DIAGNOSES: 1. Frequent premature ventricular contractions. 2. Admit for sotalol titration. 3. Dyslipidemia. 4. Admit for inpatient high risk medication titration. DISCHARGE DIAGNOSES: 1. Status post permanent pacemaker for sick sinus syndrome. 2. Frequent premature ventricular contractions. Managed on amiodarone. 3. Dyslipidemia. COURSE OF HOSPITALIZATION: This gentleman was admitted for management of frequent PVCs seen on Holter monitor showing 43 K in 24 hours. Symptoms of dyspnea and fatigue were compromising his daily activities. It was determined to try sotalol titration to manage the PVC burden, which was contributing to electrically low cardiac output. After 3 doses of sotalol, it was apparent that the PVC burden was not well managed. A trial of IV amiodarone then was initiated finding suppression of PVCs. He was placed on 400 mg of amiodarone daily, which is managing the suppression of PVCs well. He had a Biotronik pacemaker placed due to low heart rates on the amiodarone. He has been up ambulating in his room with no problems. The pacemaker device was checked and functioning normal. He is going to be taken to [facility] for further evaluation for inpatient rehab, which has been requested by his daughter, Ivon. Rehab eval has been ordered for Monday December 05, 2016. PT and OT have been involved in his care. At this time, it is felt he is stable for hospital discharge. MEDICATIONS: He will be discharged on pravastatin 10 mg at bedtime. Synthroid 100 mcg daily. Amlodipine 2.5 mg at bedtime. Melatonin 3 mg at bedtime. Vitamin B complex 1 daily. Pacerone 400 mg daily for 2 weeks, then decreased to amiodarone 200 mg daily. ALLERGIES: Penicillin, tetanus vaccine and toxoid. PHYSICAL EXAMINATION: VITAL SIGNS: On day of discharge, blood pressure 120/88 , heart rate 96, oxygen saturation 92% on room air, temperature 37.1 Celsius. EKG: Shows a paced rhythm. Heart rate regular. No murmurs, rubs, gallops. LUNGS: Sounds are clear to auscultation. No wheezes, rales, or rhonchi. SKIN : Left pectoral incision site non-bleeding. No induration with mild tenderness. EXTREMITIES: No peripheral edema. Pulses 2+ bilaterally. PROCEDURE: On 12/04/2016, he was taken to the cardiac metallurgical laboratory assistant for implantation of AV pacemaker due to low heart rates on necessary medication. Amiodarone proved to decrease his PVC burden, but his heart rate lowered. Pacemaker placed due to sick sinus syndrome, so that he could tolerate amiodarone therapy. Device: Biotronik serial number [id number]. Atrial lead: Biotronik Solia. Ventricle lead: Biotronik Solia. Pacing mode: DDD, lower rate 80, upper tracking rate 120. There were no complications. LABORATORY: On 12/04/2016: White blood count 5.76, hemoglobin 12.4, hematocrit 37.8, platelets 116. Chemistry on 12/04/2016: Sodium 137, potassium 4.7, BUN 32, creatinine 1.3, GFR estimated 52, glucose 88. Electrocardiogram on 12/04/2016: Heart rate 89 ventricular paced complexes, right bundle branch block. Chest x-ray 12/04/2016: Pacemaker and leads in good position with no evidence of pneumothorax. Small bilateral pleural effusion. DISCHARGE PLAN: 1. [facility]. He will need Biotronik pacemaker checked in 1 week at [facility]. We will notify [facility] of this needed pacemaker check. 2. In 1 week, the RN at [facility] can check the incision, which is closed with Steri-Strips. Steri-Strips should remain in place until they fall off or at 4 weeks. 3. Continue on amiodarone 400 mg daily for PVC burden. 4. In 2 weeks decrease amiodarone to 200 mg daily. 5. Follow up with Dr. Mittal in 2-3 weeks. The office will call with appointment. 6. Pacemaker precautions including no heavy lifting, pushing, pulling greater than 10 pounds for 2 weeks. Use arm below shoulder level for the next 2-4 weeks. 7. Use sling to use as reminder not to use arm overhead for the next week. 8. Call [facility] office for any further concerns or questions. At this time, he currently is stable for discharge with his daughters to [facility] in [place], [place]. /[id number]/MODL MTDD
[2016-12-19] MEDS ORDERED: AMIODARONE HCL 200 MG TAB PO SCH (09:00)
== END 2016-12-05 13:55 | DRG 244 ==
LOC: F2W 11:37
PROVIDERS: ADMIT Internal Medicine Cardiovascular Disease; ATTEND Internal Medicine Cardiovascular Disease
PROC: 02HK3JZ Insertion of Pacemaker Lead into Right Ventricle, Percutaneous Approach (ICD-10-PCS; principal; 2016-11-30)
PROC: 02H63JZ Insertion of Pacemaker Lead into Right Atrium, Percutaneous Approach (ICD-10-PCS; principal; 2016-11-30)
PROC: 0JH636Z Insertion of Pacemaker, Dual Chamber into Chest Subcutaneous Tissue and Fascia, Percutaneous Approach (ICD-10-PCS; principal; 2016-11-30)
DX: I49.5 Sick sinus syndrome (principal); I49.3 Ventricular premature depolarization; I10 Essential (primary) hypertension; E78.5 Hyperlipidemia, unspecified; E03.9 Hypothyroidism, unspecified; R73.9 Hyperglycemia, unspecified; I34.0 Nonrheumatic mitral (valve) insufficiency
CPT/HCPCS: 97116-GP; 97161-GP; 97165-GO; 97530-GO; C1785; C1898; G0008; G8978-GP-CJ; G8979-GP-CI; G8987-GO-CK; G8988-GO-CJ; J0282; J2250; J3010; J3370

== ENCOUNTER 2016-12-15 12:26 | Observation (INO) | payer OTHER ==
[2016-12-15] MEDS ORDERED: NS 1,000 ML IV ONE ×2 (12:30→16:28)
[2016-12-15] MEDS ORDERED: BACITRACIN IRRIGATION/NS 50,000 UNITS/1,000 ML BTL IRR ONE ×2 (12:30→16:28)
[2016-12-15] MEDS ORDERED: diphenhydrAMINE 25 MG CAP PO ONE ×2 (12:30→16:28)
[2016-12-15] MEDS ORDERED: DIAZEPAM 5 MG TAB PO ONE ×2 (12:30→16:28)
[2016-12-15] MEDS ORDERED: LIDOCAINE 1% 300 MG/30 ML SDV ONE (13:02)
[2016-12-15] MEDS ORDERED: LIDO/EPI 1% **for epidural** 10 ML SDV ONE (13:03)
[2016-12-15] MEDS ORDERED: BUPIVACAINE 0.5% 30 ML SDV ONE (13:03)
--- NOTE | 2016-12-15 13:22 | CPEKG ---
Heart Rate: 89 RR Interval: 674 P-R Interval: 154 QRSD Interval: 174 QT Interval: 464 QTC Interval: 565 P [place]: 9 QRS [place]: -60 T Wave [place]: 122 EKG Severity - ABNORMAL ECG - EKG Impression: A-V DUAL-PACED COMPLEXES W/ SOME INHIBITION Electronically Signed By: Darin Valentine 18-Dec-2016 09:04:10
[2016-12-15] MEDS ORDERED: VANCOMYCIN HCL/NORMAL SALINE 250 ML IV ONE (13:30)
[2016-12-15 13:40] LABS: % IMMATURE GRANULYOCYTES 0.2 % (0.0-1.1); ABSOLUTE IMMATURE GRANULOCYTES 0.01 10^3/uL (0.00-0.10); ADD DIFF? NO; ADD MORPH? NO; ADD SCAN? NO; ATYPICAL LYMPHOCYTE FLAG 20 (0-99); FRAGMENT RBC FLAG 0 (0-99); HEMATOCRIT 40.8 % (40.0-51.0); HEMOGLOBIN 13.7 g/dL (13.7-17.5); LEFT SHIFT FLG 0 (0-99); LIPEMIA HEMOLYSIS FLAG 80 (0-99); MEAN CELL HEMOGLOBIN 31.6 pg (27.9-34.1); MEAN CELL HEMOGLOBIN CONCENTR. 33.6 g/dL (32.4-36.7); MEAN PLATELET VOLUME 10.5 fL (8.7-11.7); PLATELET CLUMPS FLAG 0 (0-99); PLATELET COUNT 142 10^3/uL (150-400); RED BLOOD CELL COUNT 4.34 10^6/uL (4.40-6.38); RED CELL DISTRIBUTION WIDTH 14.3 % (11.5-15.2)
--- NOTE | 2016-12-15 13:49 | PDANEPAE ---
ANE History of Present Illness pacemaker lead misplacement ANE Past Medical History - Cardiovascular History Hx Arrhythmias: Yes - Pulmonary History Hx Oxygen in Use at Home: No Hx Sleep Apnea: No - Endocrine History Hx Diabetes: No Hypothyroid: Yes - Chronic Pain History Chronic Pain: No ANE Review of Systems Review of Systems: - Exercise capacity METS (RN): 2 METS ANE Patient History - Allergies Allergies/Adverse Reactions: Penicillins Allergy (Verified 05/01/15 17:49) Tetanus Vaccines and Toxoid [Tetanus Vaccines & Toxoid] Allergy (Verified 17:49) - Home Medications Home Medications: Levothyroxine [Synthroid 100 mcg (*)] 100 mcg PO DAILY06 03/02/15 [Last Taken ] Pravastatin Sodium 10 mg PO HS 03/02/15 [Last Taken 12/14/16] Melatonin [Melatonin 3 MG (*)] 3 mg PO HS 11/30/16 [Last Taken 12/14/16] amLODIPine BESYLATE [Norvasc 2.5 mg (*)] 2.5 mg PO HS 11/30/16 [Last Taken 12/14] - Smoking Hx Smoking Status: Never smoked ANE Labs/Vital Signs - Labs Result Diagrams: 12/15/16 13:30 12/15/16 13:30 - Vital Signs Height: 168 cm Weight: 80.28 kg ANE Physical Exam - Airway Neck exam: FROM Mallampati Score: Class 1 Mouth exam: poor dentition, dentures - Pulmonary Pulmonary: no respiratory distress - Cardiovascular Cardiovascular: regular rate and rhythym - ASA Status ASA Status: III ANE Anesthesia Plan Anesthesia Plan: MAC
[2016-12-15 13:50] LABS: INR 1.23 (0.83-1.16); PROTIME(PATIENT) 15.5 SEC (12.0-15.0)
[2016-12-15] MEDS ORDERED: fentaNYL 100 MCG/2 ML INJ ONE (13:52)
[2016-12-15] MEDS ORDERED: MIDAZOLAM 2 MG/2 ML VIAL ONE (13:52)
[2016-12-15] MEDS ORDERED: PROPOFOL 200 MG/20 ML VIAL ONE ×2 (13:52→13:55)
[2016-12-15 13:58] LABS: ANION GAP 10 mEq/L (8-16); CALCIUM 9.3 mg/dL (8.5-10.4); CARBON DIOXIDE 23 mEq/l (22-31); CHLORIDE 107 mEq/L (97-110); CREATININE 1.6 mg/dL (0.7-1.3); GLOMERULAR FILTRATION RATE 41; GLUCOSE 86 mg/dL (70-100); POTASSIUM 4.7 mEq/L (3.5-5.2); SODIUM 140 mEq/L (134-144)
[2016-12-15] MEDS ORDERED: VANCOMYCIN 1.5 GM in D5W 250 ML IV SCH (15:30)
--- NOTE | 2016-12-15 15:41 | POSTANESTH ---
Post Anesthetic Evaluation Cardiovascular Status: Normal, Stable Respiratory Status: Normal, Stable Level of Consciousness/Mental Status: Can Participate in Eval Pain Control: Adequate, Prn Tx Ordered Nausea/Vomiting Control: Adequate, Prn Tx Ordered Complications Possibly Related to Anesthesia: None Noted
--- NOTE | 2016-12-15 17:29 | ECHO ---
[email or web address] [place] [id number] Main: [phone] Fax: Transthoracic Echocardiogram Name: ENRIQUE MCKENNA MR#: [id number] Study Date: 12/15/2016 Study Time: 03:55 PM Date of : 1925 Age: 89 year(s) Height: ( ) Weight: ( ) BSA: Gender: Male Examination: Limited Echo Indication: Pericardial Effusion Image Quality: Adequate Contrast: Requested by: Bebo Piper BP: / Heart Rate: Rhythm: Indication: Pericardial Effusion Procedure Staff Lane Marker Installer: Africa Orosco Reading Physician: Abel Pozo Requesting Provider: Conclusions: small pericardial effusion without echo evidence of tamponade. Pacemaker lead in the right ventricle Measurements: Chambers Valvular Assessment AV/MV Valvular Assessment TV/PV Normal Normal Normal Name Value Range Name Value Range Name Value Range Continued Measurements: Findings: Right Ventricle: There is a pacemaker lead noted in the right ventricle. Pericardium: Small pericardial effusion. No echocardiographic evidence of hemodynamic compromise. The pericardial effusion is adjacent to the right ventricle. (No Signature Object) Patient: ENRIQUE MCKENNA Study Date: 12/15/2016 Page 1 of 1 03:55 PM [id number]
--- NOTE | 2016-12-15 17:37 | CPEKG ---
Heart Rate: 100 RR Interval: 600 P-R Interval: 120 QRSD Interval: 144 QT Interval: 444 QTC Interval: 573 P [place]: 142 QRS [place]: -66 T Wave [place]: 104 EKG Severity - ABNORMAL ECG - EKG Impression: ATRIAL-VENTRICULAR DUAL-PACED RHYTHM Electronically Signed By: Darin Valentine 18-Dec-2016 09:04:21
--- NOTE | 2016-12-15 18:26 | CPEKG ---
Heart Rate: 100 RR Interval: 600 P-R Interval: 180 QRSD Interval: 172 QT Interval: 428 QTC Interval: 553 P [place]: 131 QRS [place]: -70 T Wave [place]: 110 EKG Severity - ABNORMAL ECG - EKG Impression: ATRIAL-VENTRICULAR DUAL-PACED RHYTHM Electronically Signed By: Darin Valentine 18-Dec-2016 09:04:28
[2016-12-15] MEDS ORDERED: MELATONIN 3 MG TAB PO SCH (21:00)
[2016-12-15] MEDS ORDERED: PRAVASTATIN SODIUM 10 MG TAB PO SCH (21:00)
[2016-12-16] MEDS: HYDROCODONE/APAP 5/325 TAB PO PRN ×2 (03:24→12:58)
[2016-12-16 04:54] LABS: % IMMATURE GRANULYOCYTES 0.3 % (0.0-1.1); ABSOLUTE IMMATURE GRANULOCYTES 0.02 10^3/uL (0.00-0.10); ADD DIFF? NO; ADD MORPH? NO; ADD SCAN? NO; ATYPICAL LYMPHOCYTE FLAG 10 (0-99); FRAGMENT RBC FLAG 0 (0-99); HEMATOCRIT 41.7 % (40.0-51.0); HEMOGLOBIN 13.6 g/dL (13.7-17.5); LEFT SHIFT FLG 0 (0-99); LIPEMIA HEMOLYSIS FLAG 80 (0-99); MEAN CELL HEMOGLOBIN 31.3 pg (27.9-34.1); MEAN CELL HEMOGLOBIN CONCENTR. 32.6 g/dL (32.4-36.7); MEAN CELL VOLUME 96.1 fL (81.5-99.8); MEAN PLATELET VOLUME 11.2 fL (8.7-11.7); PLATELET CLUMPS FLAG 0 (0-99); PLATELET COUNT 152 10^3/uL (150-400); RED BLOOD CELL COUNT 4.34 10^6/uL (4.40-6.38); RED CELL DISTRIBUTION WIDTH 14.6 % (11.5-15.2)
[2016-12-16 05:11] LABS: ANION GAP 12 mEq/L (8-16); CALCIUM 9.6 mg/dL (8.5-10.4); CARBON DIOXIDE 20 mEq/l (22-31); CHLORIDE 105 mEq/L (97-110); CREATININE 1.5 mg/dL (0.7-1.3); GLOMERULAR FILTRATION RATE 44; GLUCOSE 105 mg/dL (70-100); POTASSIUM 4.7 mEq/L (3.5-5.2); SODIUM 137 mEq/L (134-144)
[2016-12-16] MEDS ORDERED: LEVOTHYROXINE 100 MCG TAB PO SCH (06:00)
--- NOTE | 2016-12-16 08:27 | EPPROC ---
Electrophysiology Procedure Note: PROCEDURE PERFORMED: 1. RA lead revision INDICATION: High capture threshold for atrial lead PROCEDURE NOTE: Patient presented to the cardiac catherization laboratory in a fasting, postabsorptive state. Moderate sedation administered. The left infraclavicular area was prepped and draped in the usual sterile fashion. Lidocaine plus bupivacaine was used for local anesthesia. Using a combination of blunt and sharp dissection and electrocautery, the dissection was carried down to the prepectoral fascia and the existing pacemaker pocket was opened. The pacemaker generator was disconnected from the RA lead. Suture sleeve was cut. Stylet placed. The lead was retracted. Multiple different positions were tried and eventually in the RA lateral position good numbers were obtained. The lead was sutured down. It was placed in the pacemaker port. All the lead thresholds and impedance were checked. The pacemaker pocket was copiously irrigated with antibiotic solution. The pocket was again inspected for any bleeding. The leads were attached to the pacemaker securely. The pacemaker was inserted into the pocket and secured in place with a nonabsorbable suture. The pacemaker pocket was closed in 3 layers with absorbable monocryl sutures. Appropriate dressing was applied. The patient left the cardiac catheterization laboratory in stable condition. Serial Numbers: 1. Device Biotronik Edora 8 SN [id number] 2. Atrial Lead Biotronik Solia S45 SN [id number] 3. Ventricular Lead Biotronik S53 SN [id number] Stimulation Thresholds & Impedance Measurements: 1. Atrial Lead 1.7mV, 1.2@0.4ms, 409Ohms 2. Ventricular Lead 9mV, 1@0.4ms, 526Ohms Filipe Pacing Parameters 1. Pacing mode DDD 2. Lower rate 100 3. Upper tracking rate 120 4. Upper sensor rate 120 Patient Problems: Problems Problem Status Onset PVC (premature ventricular contraction) Acute S/P placement of cardiac pacemaker Acute
[2016-12-16 08:28] VITALS: BP 107/82; PULSE 100; RESP 17; TEMP 98.1; O2SAT 96
--- NOTE | 2016-12-16 08:43 | CPEKG ---
Heart Rate: 100 RR Interval: 600 P-R Interval: 107 QRSD Interval: 158 QT Interval: 444 QTC Interval: 573 P [place]: 0 QRS [place]: -69 T Wave [place]: 113 EKG Severity - ABNORMAL ECG - EKG Impression: ATRIAL-VENTRICULAR DUAL-PACED RHYTHM Electronically Signed By: Darin Valentine 18-Dec-2016 09:04:35
--- NOTE | 2016-12-16 11:25 | PDIAF ---
- Diagnosis Diagnosis: Sick sinus syndrome s/p pacemaker Code Status: Full Code - Medication Management Discharge Medications: Medications to Continue on Transfer Levothyroxine [Synthroid 100 mcg (*)] 100 mcg PO DAILY06 03/02/15 [Last Taken ] Pravastatin Sodium 10 mg PO HS 03/02/15 [Last Taken 12/14/16] Melatonin [Melatonin 3 MG (*)] 3 mg PO HS 11/30/16 [Last Taken 12/14/16] amLODIPine BESYLATE [Norvasc 2.5 mg (*)] 2.5 mg PO HS 11/30/16 [Last Taken 12/14] Discharge Medications: Refer to the Discharge Home Medication list for PRN reason. - Orders Services needed: Registered Nurse, Physical Therapy, Occupational Therapy Diet Recommendation: sodium restricted Diet Texture: Regular Texture Diet - Follow Up Care Current Providers and Referrals: Nam Vargas MD [Primary Care Provider] - Олег Mittal MD [Medical Doctor] - 12/30/16 4:00 pm
--- NOTE | 2016-12-16 11:35 | ASMTCASEMG ---
Living Arrangements What is your living Answers: With Child(kamla) arrangement? Who do you live with? Type Of Residence What kind of residence do Answers: House you live in? Discharge Plan Comments Coordination Status Comments Notes: Chart reviewed and spoke w/ KATHY Lott regarding d/c POC. Pt is a 89 y/o man admitted w/ a lead revision. Pt will be returning to [facility]. CM called [facility] to coordinate transport. Pt will be transporting via wheelchair. CM spoke w/ daughter Janki and provided updates on d/c. CM provided RN w/ phone number to give report. CM available for changes. Date Signed: 12/16/2016 11:35 AM Electronically Signed By:JOSE Adan
[2016-12-16] MEDS ORDERED: VANCOMYCIN HCL/NORMAL SALINE 250 ML IV ONE (13:00)
--- NOTE | 2016-12-16 14:32 | PDIAF ---
- Diagnosis Diagnosis: Sick sinus syndrome s/p pacemaker Code Status: Full Code - Medication Management Discharge Medications: Medications to Continue on Transfer Levothyroxine [Synthroid 100 mcg (*)] 100 mcg PO DAILY06 03/02/15 [Last Taken ] Pravastatin Sodium 10 mg PO HS 03/02/15 [Last Taken 12/14/16] Melatonin [Melatonin 3 MG (*)] 3 mg PO HS 11/30/16 [Last Taken 12/14/16] amLODIPine BESYLATE [Norvasc 2.5 mg (*)] 2.5 mg PO HS 11/30/16 [Last Taken 12/14] Acetaminophen [Arthritis Pain Relief] 650 mg PO Q6-8PRN PRN #90 tablet.er [Last Taken Unknown] Discharge Medications: Refer to the Discharge Home Medication list for PRN reason. - Orders Services needed: Registered Nurse, Physical Therapy, Occupational Therapy Diet Recommendation: sodium restricted Diet Texture: Regular Texture Diet - Follow Up Care Current Providers and Referrals: Nam Vargas MD [Primary Care Provider] - Олег Mittal MD [Medical Doctor] - 12/30/16 4:00 pm
--- NOTE | 2016-12-16 16:24 | ASDISCHSUM ---
Discharge Information Plan Status:SNF Medically Cleared to Leave:12/16/2016 Discharge Date:12/16/2016 03:18 PM CM D/C Disposition: ADT D/C Disposition:Home, Routine, Self-Care Projected Discharge Date:12/16/2016 11:00 AM Transportation at D/C: Discharge Delay Reason: Follow-Up Date:12/16/2016 11:00 AM Discharge Slot: Final Diagnosis: Placement Information Referral Type:*[facility]/SNF Referral ID:[id number] Provider Name:[facility] Address 1:[address] Address 2: City:[place] Selection Factors: State:[place] Patient Contact Information Contact Name:SARAH PENNINGTON Relationship:Daughter Address:[address] [facility] Work Phone: City:[facility] Phone: State/Zip Code:[place] [address] Email: Financial Information Financial Class:Medicare Advantage Plans Primary Plan Desc:[facility] ADVANTAGE PLAN Primary Plan Number:[id number] Secondary Plan Desc: Secondary Plan Number: Assessment Information [facility] Initial CM Assessment Living Arrangements What is your living Answers: With Child(kamla) arrangement? Who do you live with? Type Of Residence What kind of residence do Answers: House you live in? Discharge Plan Comments Coordination Status Comments Notes: Chart reviewed and spoke w/ KATHY Lott regarding d/c POC. Pt is a 89 y/o man admitted w/ a lead revision. Pt will be returning to [facility]. CM called [facility] to coordinate transport. Pt will be transporting via wheelchair. CM spoke w/ daughter Janki and provided updates on d/c. CM provided RN w/ phone number to give report. CM available for changes. Date Signed: 12/16/2016 11:35 AM Electronically Signed By:JOSE Adan Intervention Information
--- NOTE | 2016-12-16 16:43 | GDS ---
[f rep st] DISCHARGE SUMMARY DISCHARGE DIAGNOSES: 1. Frequent symptomatic premature ventricular contractions, which were causing low heart rate and fa tigue. 2. 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 3. Lead dislodgement discovered on outpatient pacemaker check. 4. History of hypothyroidism. 5. History of dyslipidemia. PROCEDURES: 1. Right atrial lead revision. 2. Chest x-rays. BRIEF HISTORY: Please see dictated H and P by Dr. Mittal for complete details. In brief, the patient is an 89-year-old male, who was seen in clinic due to multiple PVCs. His effective heart rate was ve ry low due to this. He was initially admitted for sotalol titration earlier in the month, but could not tolerate this and PVCs were not suppressed. He therefore proceeded to permanent pacemaker implan tation with Dr. Mittal on 12/04/2016. He initially felt much improved, but then the right atrial lead became dislodged and therefore the fatigue returned. He proceeded to lead revision on 12/15/2016. T his was performed successfully and he is being discharged back to SNF rehab. PHYSICAL EXAM: VITAL SIGNS: On day of discharge, blood pressure 107/82, heart rate 100, respiration s 17, O2 saturation 96% on room air, temp of 98.1. GENERAL: A very pleasant male in no apparent dis tress. HEART: Regular rate and rhythm. There is a left pectoral pacer dressing. LUNGS: Clear. LABORATORY DATA: CBC with WBC 6.7, hemoglobin 13.6, hematocrit 41.7, platelet count 152. BMP with s odium 137, potassium 4.7, chloride 105, CO2 20, BUN 29, creatinine 1.5, glucose of 105. Hemoglobin A 1c of 5.8. RESULTS PENDING: None. DIET: Per previous. ACTIVITY: Per PT/OT at SNF. DISCHARGE MEDICATIONS: Please see med reconciliation. He is being discharged on all his home medica tions, which include amlodipine, pravastatin, melatonin, and levothyroxine. FOLLOWUP INSTRUCTIONS: 1. Follow up with Dr. Mittal as scheduled in outpatient setting. 2. Left arm precautions for 10 days' time. /[id number]/MODL
== END 2016-12-16 15:18 | disposition home or self-care (01) ==
LOC: FCATH 12:26 → F2W 15:22
PROVIDERS: ADMIT Internal Medicine Cardiovascular Disease; ATTEND Internal Medicine Cardiovascular Disease
PROC: 02WA0MZ Revision of Cardiac Lead in Heart, Open Approach (ICD-10-PCS; principal; 2016-12-15)
DX: T82.120A Displacement of cardiac electrode, initial encounter (principal); Y71.2 Prosthetic and other implants, materials and accessory cardiovascular devices associated with adverse incidents; I49.3 Ventricular premature depolarization; R53.83 Other fatigue; E03.9 Hypothyroidism, unspecified; E78.5 Hyperlipidemia, unspecified
CPT/HCPCS: 33218; 71020; 93005; 93308; G0378; J2250; J2704; J3010; J3370

== ENCOUNTER 2016-12-26 16:39 | Inpatient (IN) | payer OTHER ==
--- NOTE | 2016-12-26 17:06 | EDPHY ---
HPI/HX/ROS/PE/MDM Narrative: CHIEF COMPLAINT: Left arm blood clot HPI: The patient is an 89 y/o male with a history of DVT, hypothyroidism, hypercholesterolemia, and pneumonia arriving from imaging with a blood clot in the left arm. Two weeks ago he had the atrial lead in his pacemaker replaced. Yesterday, his daughter noticed his left arm was red and swollen. When she spoke with nurses at the custodial facility he lives in, she was notified it had been looking that way for approximately a week. She called his tanner rotary drum continuous process this morning who advised them to have the arm imaged. Radiology identified a blood clot in his left arm. REVIEW OF SYSTEMS: Aside from elements discussed in the HPI, a comprehensive 10-point review of systems was reviewed and is negative. PMH: Hypothyroidism, hypercholesterolemia, DVT, pneumonia SOCIAL HISTORY: Lives in [place], daughter at bedside, lives at a custodial facility Prior medical records reviewed including ED visit 06/22/16. PHYSICAL EXAM: General:Patient is alert, in no acute distress. ENT:Eyes are normal to inspection. ENT inspection normal. Neck: Normal inspection. Full range of motion. Respiratory:No respiratory distress. Breath sounds normal bilaterally. Cardiovascular: Regular rate and rhythm. Strong peripheral pulses. Normal cap refill. Abdomen:The abdomen is nontender to palpation. There are no peritoneal signs. There are normal bowel sounds. Back: Normal to inspection. No tenderness to palpation. Skin: Normal color. No rash. Warm and dry. Extremities: Left arm diffusely edematous. Full range of motion. Neuro: Oriented x3. Normal motor function. Normal sensory function. MDM: Patient with acute LUE DVT and is hemodynamically stable. Patient admitted to Cardiology who will order heparin drip and arrange treatment. No signs of sepsis, saddle PE, cellulitis. - Data Points Imaging Results: Imaging Impressions Extremity Venous Study 12/26/16 15:15 Impression: 1. Extensive left upper extremity DVT, involving the humeral level brachial, basilic veins, as well as the central vessels of the subclavian vein, innominate vein, and jugular vein. 2. Underlying thoracic outlet physiology is suspected given how small the subclavian vein is even with acute thrombus. 3. Superficial thrombophlebitis involving the cephalic vein, at the upper humeral level, and at the distal forearm. Findings and recommendations discussed with Darin Hull MD at 1639 hour, . Final report concurs with initial preliminary interpretation. Imaging: Discussed imaging studies w/ machine scallop cutter Radiologist, I viewed and interpreted images myself General Time Seen by Provider: 12/26/16 16:49 Initial Vital Signs: Initial Vital Signs Temperature (C) 36.9 C 12/26/16 16:40 Heart Rate 100 12/26/16 16:40 Respiratory Rate 16 12/26/16 16:40 Blood Pressure 138/87 H 12/26/16 16:40 O2 Sat (%) 97 12/26/16 16:40 O2 Delivery Mode Nasal Cannula O2 (L/minute) 1 Allergies/Adverse Reactions: Penicillins Allergy (Verified 05/01/15 17:49) Tetanus Vaccines and Toxoid [Tetanus Vaccines & Toxoid] Allergy (Verified 17:49) Home Medications: Medication Instructions Recorded Levothyroxine [Synthroid 100 mcg 100 mcg PO DAILY06 03/02/15 (*)] Pravastatin Sodium 10 mg PO HS 03/02/15 Melatonin [Melatonin 3 MG (*)] 3 mg PO HS 11/30/16 amLODIPine BESYLATE [Norvasc 2.5 2.5 mg PO HS 11/30/16 mg (*)] Acetaminophen [Arthritis Pain 650 mg PO Q6-8PRN PRN #90 tablet.er 12/16/16 Relief] Amiodarone HCl [Pacerone (*)] 200 mg PO DAILY 12/26/16 Furosemide [Lasix 20 MG (*)] 20 mg PO DAILY 12/26/16 Potassium Chloride [Klor-Con 10] 10 meq PO DAILY 12/26/16 Departure - Departure Disposition: [facility] Acute Clinical Impression: DVT (deep venous thrombosis) Qualifiers: DVT location: upper extremity Affected thrombotic vein of extremity: other upper extremity vein Chronicity: acute Laterality: left Qualified Code(s): I82.622 - Acute embolism and thrombosis of deep veins of left upper extremity Condition: Fair Report Scribed for: Jb Louis Report Scribed by: Neha Christian Date of Report: 12/26/16 Time of Report: 17:06 Physician Review and Approval Statement: Portions of this note were transcribed by an ED scribe. I personally performed the history, physical exam, and medical decision making; and confirm the accuracy of the information in the transcribed note.
[2016-12-26] MEDS ORDERED: ONDANSETRON DISINTEGRATING 4 MG TAB PO PRN (17:17)
[2016-12-26] MEDS ORDERED: ONDANSETRON 4 MG/2 ML VIAL IVP PRN (17:17)
--- NOTE | 2016-12-26 17:34 | PDCONSULT ---
Assembler Product Note: Pt seen in office today by AMADEO. H/o frequent PVC's with associated presyncope. Failed Sotalol secondary to bradycardia and therefore had a pacer placed. A lead dislodged requiring lead revision 1-2 weeks ago. Since then he has had LUE edema. US showed extensive DVT. Pt admitted for Heparin and Coumadin. No history of bleeding. Does have a history of DVT in setting of injury. Risk of Heparin and Coumadin discussed today with the patient and his daughter. They verbalized understanding. No CP or SOB.
[2016-12-26 18:17] LABS: % IMMATURE GRANULYOCYTES 0.3 % (0.0-1.1); ABSOLUTE IMMATURE GRANULOCYTES 0.02 10^3/uL (0.00-0.10); ADD DIFF? NO; ADD MORPH? NO; ADD SCAN? NO; ATYPICAL LYMPHOCYTE FLAG 0 (0-99); FRAGMENT RBC FLAG 0 (0-99); HEMATOCRIT 38.2 % (40.0-51.0); HEMOGLOBIN 12.8 g/dL (13.7-17.5); LEFT SHIFT FLG 0 (0-99); LIPEMIA HEMOLYSIS FLAG 80 (0-99); MEAN CELL HEMOGLOBIN 31.4 pg (27.9-34.1); MEAN CELL HEMOGLOBIN CONCENTR. 33.5 g/dL (32.4-36.7); MEAN CELL VOLUME 93.6 fL (81.5-99.8); MEAN PLATELET VOLUME 9.8 fL (8.7-11.7); PLATELET CLUMPS FLAG 0 (0-99); PLATELET COUNT 222 10^3/uL (150-400); RED BLOOD CELL COUNT 4.08 10^6/uL (4.40-6.38); RED CELL DISTRIBUTION WIDTH 13.7 % (11.5-15.2)
[2016-12-26 18:30] LABS: APTT 28.6 SEC (23.0-38.0); INR 1.1 (0.83-1.16); PROTIME(PATIENT) 14.1 SEC (12.0-15.0)
[2016-12-26 18:32] LABS: ALANINE AMINOTRANSFERASE 27 IU/L (21-72); ALBUMIN 3.5 g/dL (3.5-5.0); ALKALINE PHOSPHATASE 102 IU/L (38-126); ANION GAP 13 mEq/L (8-16); ASPARTATE AMINOTRANSFERASE 31 IU/L (17-59); BILIRUBIN,TOTAL 0.4 mg/dL (0.1-1.4); CALCIUM 8.9 mg/dL (8.5-10.4); CARBON DIOXIDE 23 mEq/l (22-31); CHLORIDE 102 mEq/L (97-110); CREATININE 1.6 mg/dL (0.7-1.3); GLOMERULAR FILTRATION RATE 41; GLUCOSE 92 mg/dL (70-100); POTASSIUM 4.3 mEq/L (3.5-5.2); SODIUM 138 mEq/L (134-144)
[2016-12-26] MEDS: WARFARIN SODIUM 5 MG TAB PO SCH (18:48)
[2016-12-26] MEDS ORDERED: HEPARIN 10,000 UNIT/10 ML MDV IVP PRN (19:16)
[2016-12-26] MEDS ORDERED: HEPARIN 10,000 UNIT/10 ML MDV IVP ONE (19:30)
[2016-12-26] MEDS: HEPARIN/DEXTROSE 500 ML IV SCH (20:40)
[2016-12-26] MEDS: PRAVASTATIN SODIUM 10 MG TAB PO SCH (20:42)
[2016-12-26] MEDS: MELATONIN 3 MG TAB PO SCH (20:43)
[2016-12-27 04:06] LABS: % IMMATURE GRANULYOCYTES 0.4 % (0.0-1.1); ABSOLUTE IMMATURE GRANULOCYTES 0.02 10^3/uL (0.00-0.10); ADD DIFF? NO; ADD MORPH? NO; ADD SCAN? NO; ALANINE AMINOTRANSFERASE 29 IU/L (21-72); ALBUMIN 2.8 g/dL (3.5-5.0); ALKALINE PHOSPHATASE 86 IU/L (38-126); ANION GAP 11 mEq/L (8-16); ASPARTATE AMINOTRANSFERASE 26 IU/L (17-59); ATYPICAL LYMPHOCYTE FLAG 20 (0-99); BILIRUBIN,TOTAL 0.3 mg/dL (0.1-1.4); CALCIUM 8.4 mg/dL (8.5-10.4); CARBON DIOXIDE 22 mEq/l (22-31); CHLORIDE 105 mEq/L (97-110); CREATININE 1.4 mg/dL (0.7-1.3); FRAGMENT RBC FLAG 0 (0-99); GLOMERULAR FILTRATION RATE 48; GLUCOSE 91 mg/dL (70-100); HEMATOCRIT 34.5 % (40.0-51.0); HEMOGLOBIN 11.6 g/dL (13.7-17.5); LEFT SHIFT FLG 0 (0-99); LIPEMIA HEMOLYSIS FLAG 80 (0-99); MEAN CELL HEMOGLOBIN 31.1 pg (27.9-34.1); MEAN CELL HEMOGLOBIN CONCENTR. 33.6 g/dL (32.4-36.7); MEAN CELL VOLUME 92.5 fL (81.5-99.8); PLATELET CLUMPS FLAG 0 (0-99); PLATELET COUNT 210 10^3/uL (150-400); POTASSIUM 4.1 mEq/L (3.5-5.2); RED BLOOD CELL COUNT 3.73 10^6/uL (4.40-6.38); RED CELL DISTRIBUTION WIDTH 13.7 % (11.5-15.2); SODIUM 138 mEq/L (134-144); TOTAL PROTEIN 5.7 g/dL (6.3-8.2)
[2016-12-27 04:13] LABS: INR 1.18 (0.83-1.16)
[2016-12-27] MEDS: LEVOTHYROXINE 100 MCG TAB PO SCH (05:56)
--- NOTE | 2016-12-27 08:54 | PDCARPN ---
Cardiology Progress Note Chief Complaint: Left upper extremity edema Assessment/Plan: Assessment/Plan: Mann is a 89 y/o M typically followed by Dr. Mittal who was admitted with a extensive LUE DVT post pacer placement. He was complaining of fatigue and found to have frequent PVC's. He was admitted for Sotalol loading but become bradycardic and therefore a DDDR pacer was placed on 12/04. He initially felt better but then presented back to our office complaining of fatigue. His atrial lead dislodged and he was taken back for lead revision by Dr. Mittal on . Over the past week he noted left upper extremity edema and a US yesterday showed a extensive LUE DVT with thoracic outlet concerns. He was started on Heparin and Coumadin yesterday. He feels his edema has improved. He has a history of DVT in . He thinks this occurred after he hit his leg. Plan: 1. LUE DVT post pacer- continue Heparin until his INR is therapeutic. 2. Acute on chronic renal insufficiency- will continue to hold Lasix. 3. DDDR pacer on 12/04 with A lead revision on 12/15 4. PVC's- in trigeminy on tele with intermittant A-V pacing 5. Possible thoracic outlet 12/27/16 09:39 Subjective: LUE edema improved but is still present. He denies any CP or SOB. Objective: Vital Signs (8 Hrs) Temp Pulse Resp BP Pulse Ox 12/27/16 07:11 37.1 C 100 17 127/79 H 93 12/27/16 05:59 36.7 C 100 16 114/70 95 Intake/Output (24 Hrs) 12/26/16 12/27/16 12/28/16 05:59 05:59 05:59 Intake Total 515 Output Total 600 Balance -85 Intake: Oral (ml) 200 IV Infused (ml) 315 Heparin/Dextrose 500 ml @ 315 As Directed IV CONT [facility] Rx#:[id number] Output: Urine (ml) 600 Urinal 600 Other: Weight 78.7 kg Intake Quantity Yes Sufficient Result Diagrams: 12/27/16 02:45 12/27/16 02:45 Telemetry: intermittant A-V pacing with PVC's occurring in trigeminy - Physical Exam Constitutional: WDWN Cardiovascular: regular rate and rhythm, no murmurs, no rubs, no gallops Peripheral Pulses: 2+: dorsalis-pedis (R), dorsalis-pedis (L) Respiratory: clear to auscultate bilat, no crackles, no wheezes Skin: other (LUE edema) Neurologic: AAOx3 ICD10 Worksheet Patient Problems: Problems Problem Status Onset DVT (deep venous thrombosis) Acute PVC (premature ventricular contraction) Acute S/P placement of cardiac pacemaker Acute
[2016-12-27] MEDS ORDERED: AMIODARONE HCL 200 MG TAB PO SCH (09:00)
--- NOTE | 2016-12-27 14:06 | ASMTCMCOM ---
CM Note CM Note Notes: 12/27/2016 Case Management Note Phone call from daughter Janki ([facility]) [phone] this morning. Janki is a PT at [facility] and prefers pt return to [facility] at d/c. Pt admitted from [facility] in [place] yesterday for UE DVT. Regina is admission coordinator P: [phone] Pt has exceeeded 20 days of rehab and now has a daily copay of approximately $160/day. Pt expressed concern at ability to pay. Pt has 10 children and many are involved in his cares. Discussed needing 24/ supervision if pt choses to not return to SNF. Pt requested time to speak with family. Spoke with Janki later in the day. Janki states that pt in agreement with need to return to SNF rehab. Faxed updated notes to facility. Case Management d/c poc: Return to [facility] when medically stable. Case Management to follow. Date Signed: 12/27/2016 02:05 PM Electronically Signed By:Maritza Abarca RN
[2016-12-27] MEDS: HEPARIN/DEXTROSE 500 ML IV SCH (17:19)
[2016-12-27] MEDS: WARFARIN SODIUM 5 MG TAB PO SCH (17:22)
[2016-12-27] MEDS: MELATONIN 3 MG TAB PO SCH (20:48)
[2016-12-27] MEDS: PRAVASTATIN SODIUM 10 MG TAB PO SCH (20:48)
[2016-12-28 05:11] LABS: % IMMATURE GRANULYOCYTES 0.4 % (0.0-1.1); ABSOLUTE IMMATURE GRANULOCYTES 0.02 10^3/uL (0.00-0.10); ADD DIFF? NO; ADD MORPH? NO; ADD SCAN? NO; ATYPICAL LYMPHOCYTE FLAG 10 (0-99); FRAGMENT RBC FLAG 0 (0-99); HEMATOCRIT 36.6 % (40.0-51.0); LEFT SHIFT FLG 0 (0-99); LIPEMIA HEMOLYSIS FLAG 80 (0-99); MEAN CELL HEMOGLOBIN 30.8 pg (27.9-34.1); MEAN CELL HEMOGLOBIN CONCENTR. 32.8 g/dL (32.4-36.7); MEAN CELL VOLUME 93.8 fL (81.5-99.8); MEAN PLATELET VOLUME 9.9 fL (8.7-11.7); PLATELET CLUMPS FLAG 10 (0-99); PLATELET COUNT 209 10^3/uL (150-400); RED CELL DISTRIBUTION WIDTH 13.7 % (11.5-15.2)
[2016-12-28 05:21] LABS: INR 1.21 (0.83-1.16); PROTIME(PATIENT) 15.3 SEC (12.0-15.0)
[2016-12-28] MEDS: LEVOTHYROXINE 100 MCG TAB PO SCH (06:27)
[2016-12-28] MEDS: AMIODARONE HCL 200 MG TAB PO SCH (11:30)
--- NOTE | 2016-12-28 12:29 | PDCARPN ---
Cardiology Progress Note Chief Complaint: LUE DVT Assessment/Plan: Assessment/Plan: Mann is a 89 y/o M typically followed by Dr. Mittal who was admitted with a extensive LUE DVT post pacer placement. He was complaining of fatigue and found to have frequent PVC's. He was admitted for Sotalol loading but become bradycardic and therefore a DDDR pacer was placed on 12/04. He initially felt better but then presented back to our office complaining of fatigue. His atrial lead dislodged and he was taken back for lead revision by Dr. Mittal on . Over the past week he noted left upper extremity edema and a US yesterday showed a extensive LUE DVT with thoracic outlet concerns. He was started on Heparin and Coumadin. He feels his edema has improved. He is now complaining of a palpitation/chest discomfort what radiates to his back. Per Dr. Mittal he has had this for years. Tylenol improved his discomfort. His O2 SAT is wnl. He has a history of DVT in . He thinks this occurred after he hit his leg. Plan: 1. LUE DVT post pacer- continue Coumadin and Heparin until his INR is therapeutic. He is on Amiodarone so his INR will need to be followed closely. 2. Acute on chronic renal insufficiency- Lasix on hold. Creatinine is improving. 3. DDDR pacer on 12/04 with A lead revision on 12/15 4. PVC's- He will continue Amiodarone. 5. Possible thoracic outlet Pt discussed with his daughter Janki his POA 12/28/16 14:59 Subjective: c/o palpitations/cp. He denies any SOB. Reviewed/Discussed With: family Objective: Vital Signs (8 Hrs) Temp Pulse Resp BP Pulse Ox 12/28/16 11:15 36.5 C 100 12 118/76 90 L 12/28/16 10:51 94 12/28/16 08:00 36.6 C 100 10 L 108/76 94 Intake/Output (24 Hrs) 12/27/16 12/28/16 12/29/16 05:59 05:59 05:59 Intake Total 986 Output Total 650 350 Balance 336 -350 Intake: Oral (ml) 700 IV Infused (ml) 286 Heparin/Dextrose 500 ml @ 286 As Directed IV CONT [facility] Rx#:[id number] Output: Urine (ml) 650 350 Toilet 350 Urinal 650 Other: Number of Voids Toilet 1 Result Diagrams: 12/28/16 04:08 12/27/16 02:45 Telemetry: A-V paced - Physical Exam Constitutional: WDWN Cardiovascular: regular rate and rhythm Respiratory: clear to auscultate bilat, no crackles, no wheezes Skin: other (LUE mild edema which has improved.) Neurologic: AAOx3 ICD10 Worksheet Patient Problems: Problems Problem Status Onset DVT (deep venous thrombosis) Acute PVC (premature ventricular contraction) Acute S/P placement of cardiac pacemaker Acute
[2016-12-28] MEDS: ACETAMINOPHEN 325 MG TAB PO PRN (12:51)
[2016-12-28] MEDS: WARFARIN SODIUM 5 MG TAB PO SCH (15:34)
--- NOTE | 2016-12-28 16:27 | ASMTCMCOM ---
CM Note CM Note Notes: Chart reviewed Plan is still back to [facility]. CM to follow, 12/27/2016 Case Management Note Phone call from daughter Janki ([facility]) [phone] this morning. Janki is a PT at [facility] and prefers pt return to [facility] at d/c. Pt admitted from [facility] in [place] yesterday for UE DVTFlaco Tapia is admission coordinator P: [phone] Pt has exceeeded 20 days of rehab and now has a daily copay of approximately $160/day. Pt expressed concern at ability to pay. Pt has 10 children and many are involved in his cares. Discussed needing 24/7 supervision if pt choses to not return to SNF. Pt requested time to speak with family. Spoke with Janki later in the day. Janki states that pt in agreement with need to return to SNF rehab. Faxed updated notes to facility. Case Management d/c poc: Return to [facility] when medically stable. Case Management to follow. Date Signed: 12/28/2016 04:26 PM Electronically Signed By:Rahda Isabel RN
[2016-12-28] MEDS: MELATONIN 3 MG TAB PO SCH (20:05)
[2016-12-28] MEDS: PRAVASTATIN SODIUM 10 MG TAB PO SCH (20:05)
[2016-12-29] MEDS: ACETAMINOPHEN 325 MG TAB PO PRN (00:47)
[2016-12-29 05:17] LABS: % IMMATURE GRANULYOCYTES 0.4 % (0.0-1.1); ABSOLUTE IMMATURE GRANULOCYTES 0.03 10^3/uL (0.00-0.10); ADD DIFF? NO; ADD MORPH? NO; ADD SCAN? NO; ATYPICAL LYMPHOCYTE FLAG 0 (0-99); FRAGMENT RBC FLAG 40 (0-99); HEMATOCRIT 34.5 % (40.0-51.0); HEMOGLOBIN 11.6 g/dL (13.7-17.5); LEFT SHIFT FLG 0 (0-99); LIPEMIA HEMOLYSIS FLAG 80 (0-99); MEAN CELL HEMOGLOBIN 31.4 pg (27.9-34.1); MEAN CELL HEMOGLOBIN CONCENTR. 33.6 g/dL (32.4-36.7); MEAN CELL VOLUME 93.2 fL (81.5-99.8); MEAN PLATELET VOLUME 10.5 fL (8.7-11.7); PLATELET CLUMPS FLAG 10 (0-99); PLATELET COUNT 246 10^3/uL (150-400); RED CELL DISTRIBUTION WIDTH 13.7 % (11.5-15.2)
[2016-12-29 05:29] LABS: INR 1.55 (0.83-1.16); PROTIME(PATIENT) 18.6 SEC (12.0-15.0)
[2016-12-29] MEDS: LEVOTHYROXINE 100 MCG TAB PO SCH (06:05)
[2016-12-29] MEDS: AMIODARONE HCL 200 MG TAB PO SCH (10:10)
--- NOTE | 2016-12-29 11:08 | PDCARPN ---
Cardiology Progress Note Chief Complaint: DVT Assessment/Plan: Assessment/Plan: Mann is a 89 y/o M typically followed by Dr. Mittal who was admitted with a extensive LUE DVT post pacer placement. He was complaining of fatigue and found to have frequent PVC's. He was admitted for Sotalol loading but become bradycardic and therefore a DDDR pacer was placed on 12/04. He initially felt better but then presented back to our office complaining of fatigue. His atrial lead dislodged and he was taken back for lead revision by Dr. Mittal on . Over the past week he noted left upper extremity edema and a US yesterday showed a extensive LUE DVT with thoracic outlet concerns. He was started on Heparin and Coumadin. He feels his edema has improved. He is now complaining of a palpitation/chest discomfort what radiates to his back. Per Dr. Mittal he has had this for years. Tylenol improved his discomfort. His O2 SAT is wnl. He has a history of DVT in . He thinks this occurred after he hit his leg. Plan: 1. LUE DVT post pacer- continue Coumadin and Heparin until his INR is therapeutic. He is on Amiodarone so his INR will need to be followed closely. 1.55 today. 2. Acute on chronic renal insufficiency- Lasix on hold. Creatinine is improving. 3. DDDR pacer on 12/04 with A lead revision on 12/15 4. PVC's- He will continue Amiodarone. 5. Possible thoracic outlet 6. mildly febrile yesterday- resolved with tylenol. WBC wnl. No other signs of infection. pacer site without signs of infection. BCX ordered and pending. Pt discussed with his daughter Janki his POA D/C to SNF once INR is therapeutic 12/29/16 12:22 Subjective: No CP or SOB. Right arm, "feels fine." No chills today. Objective: Vital Signs (8 Hrs) Temp Pulse Resp BP Pulse Ox 12/29/16 07:27 36.8 C 100 14 109/73 92 12/29/16 04:00 37.4 C 100 19 121/79 H 88 L Intake/Output (24 Hrs) 12/28/16 12/29/16 12/30/16 05:59 05:59 05:59 Intake Total 986 555 Output Total 650 1160 Balance 336 -605 Intake: Oral (ml) 700 150 IV Infused (ml) 286 405 Heparin/Dextrose 500 ml @ 286 405 As Directed IV CONT [facility] Rx#:[id number] Output: Urine (ml) 650 1160 Toilet 450 Urinal 650 710 Other: Intake Quantity Yes Sufficient Number of Voids Toilet 1 2 Urinal 3 Result Diagrams: 12/29/16 03:15 12/27/16 02:45 Telemetry: A-V paced - Physical Exam Constitutional: WDWN Cardiovascular: regular rate and rhythm Respiratory: clear to auscultate bilat, no crackles, no wheezes, other Skin: other (left hand edema improving) Neurologic: AAOx3 ICD10 Worksheet Patient Problems: Problems Problem Status Onset DVT (deep venous thrombosis) Acute PVC (premature ventricular contraction) Acute S/P placement of cardiac pacemaker Acute
[2016-12-29] MEDS: WARFARIN SODIUM 5 MG TAB PO SCH (16:02)
[2016-12-29] MEDS: PRAVASTATIN SODIUM 10 MG TAB PO SCH (20:23)
[2016-12-29] MEDS: MELATONIN 3 MG TAB PO SCH ×2 (20:23→20:54)
[2016-12-30 04:52] LABS: INR 1.96 (0.83-1.16); PROTIME(PATIENT) 22.4 SEC (12.0-15.0)
[2016-12-30] MEDS: LEVOTHYROXINE 100 MCG TAB PO SCH (05:39)
[2016-12-30 05:56] LABS: INR 1.85 (0.83-1.16); PROTIME(PATIENT) 21.4 SEC (12.0-15.0)
[2016-12-30] MEDS: AMIODARONE HCL 200 MG TAB PO SCH (09:43)
--- NOTE | 2016-12-30 09:44 | PDCARPN ---
Cardiology Progress Note Chief Complaint: LUE DVT Assessment/Plan: Assessment/Plan: Mann is a 89 y/o M typically followed by Dr. Mittal who was admitted with a extensive LUE DVT post pacer placement. He was complaining of fatigue and found to have frequent PVC's. He was admitted for Sotalol loading but become bradycardic and therefore a DDDR pacer was placed on 12/04. He initially felt better but then presented back to our office complaining of fatigue. His atrial lead dislodged and he was taken back for lead revision by Dr. Mittal on . Over the past week he noted left upper extremity edema and a US showed a extensive LUE DVT with thoracic outlet concerns. He was started on Heparin and Coumadin. He feels his edema has improved. He has a history of DVT in . He thinks this occurred after he fell and hit his leg. Plan: 1. LUE DVT post pacer- continue Coumadin and Heparin until his INR is therapeutic. He is on Amiodarone so his INR will need to be followed closely. 1.85 today. 2. Acute on chronic renal insufficiency- Lasix on hold. Creatinine is improved. 3. DDDR pacer on 12/04 with A lead revision on 12/15 4. PVC's- He will continue Amiodarone. 5. Possible thoracic outlet 6. mildly febrile 12/28- resolved with tylenol. WBC wnl. No other signs of infection. pacer site without signs of infection. BCX ordered and pending. Pt discussed with his daughter Janki his POA D/C to SNF once INR is therapeutic. Likely tomorrow. 12/30/16 09:38 Subjective: He has no complaints today. He denies any CP or . His left had is swollen but improving. Objective: Vital Signs (8 Hrs) Temp Pulse Resp BP Pulse Ox 12/30/16 08:00 36.8 C 100 18 116/77 93 12/30/16 04:00 36.7 C 89 16 117/72 91 L Intake/Output (24 Hrs) 12/29/16 12/30/16 12/31/16 05:59 05:59 05:59 Intake Total 555 2105 Output Total 1160 700 Balance -605 1405 Intake: Oral (ml) 150 1880 IV Infused (ml) 405 225 Heparin/Dextrose 500 ml @ 405 225 As Directed IV CONT [facility] Rx#:[id number] Output: Urine (ml) 1160 700 Toilet 450 Urinal 710 700 Other: Weight 78.2 kg Intake Quantity Yes Sufficient Number of Voids Toilet 2 2 Urinal 3 Number of Stools Toilet 1 Urinal 1 tele- A-V paced. Result Diagrams: 12/29/16 03:15 12/27/16 02:45 Telemetry: A-V paced - Physical Exam Constitutional: WDWN Cardiovascular: regular rate and rhythm Respiratory: clear to auscultate bilat, no crackles, no wheezes Skin: other (mild edema of the LUE, improved) Neurologic: AAOx3 ICD10 Worksheet Patient Problems: Problems Problem Status Onset DVT (deep venous thrombosis) Acute PVC (premature ventricular contraction) Acute S/P placement of cardiac pacemaker Acute
--- NOTE | 2016-12-30 12:00 | ASMTCMCOM ---
CM Note CM Note Notes: CM spoke w/ NEELIMA Joyce and discuss d/c POC. Anticipates that pt will d/c tomorrow. CM spoke w/ Crissy at [facility] and provided her updates. CM to follow. Date Signed: 12/30/2016 11:59 AM Electronically Signed By:JOSE Adan
[2016-12-30] MEDS: WARFARIN SODIUM 5 MG TAB PO SCH (17:32)
[2016-12-30] MEDS: MELATONIN 3 MG TAB PO SCH (20:21)
[2016-12-30] MEDS: PRAVASTATIN SODIUM 10 MG TAB PO SCH (20:21)
[2016-12-30] MEDS: HEPARIN/DEXTROSE 500 ML IV SCH (21:10)
[2016-12-31 03:45] LABS: HEMATOCRIT 33.2 % (40.0-51.0); HEMOGLOBIN 11.1 g/dL (13.7-17.5); MEAN CELL HEMOGLOBIN 30.7 pg (27.9-34.1); MEAN CELL HEMOGLOBIN CONCENTR. 33.4 g/dL (32.4-36.7); RED BLOOD CELL COUNT 3.61 10^6/uL (4.40-6.38); RED CELL DISTRIBUTION WIDTH 13.7 % (11.5-15.2)
[2016-12-31 03:58] LABS: INR 2.12 (0.83-1.16); PROTIME(PATIENT) 23.9 SEC (12.0-15.0)
[2016-12-31 04:06] VITALS: PULSE 100; TEMP 98.6
[2016-12-31 04:17] LABS: ANION GAP 11 mEq/L (8-16); CALCIUM 8.2 mg/dL (8.5-10.4); CARBON DIOXIDE 25 mEq/l (22-31); CHLORIDE 103 mEq/L (97-110); CREATININE 1.2 mg/dL (0.7-1.3); GLOMERULAR FILTRATION RATE 57; GLUCOSE 106 mg/dL (70-100); POTASSIUM 4.4 mEq/L (3.5-5.2); SODIUM 139 mEq/L (134-144)
[2016-12-31 08:00] VITALS: BP 121/79; RESP 12; O2SAT 91
[2016-12-31] MEDS: LEVOTHYROXINE 100 MCG TAB PO SCH (08:23)
[2016-12-31] MEDS: AMIODARONE HCL 200 MG TAB PO SCH (08:23)
--- NOTE | 2016-12-31 08:43 | PDIAF ---
- Diagnosis Diagnosis: LUE DVT Code Status: Full Code - Medication Management Discharge Medications: Medications to Continue on Transfer Levothyroxine [Synthroid 100 mcg (*)] 100 mcg PO DAILY06 03/02/15 [Last Taken ] Pravastatin Sodium 10 mg PO HS 03/02/15 [Last Taken 12/25/16] Melatonin [Melatonin 3 MG (*)] 3 mg PO HS 11/30/16 [Last Taken 12/25/16] amLODIPine BESYLATE [Norvasc 2.5 mg (*)] 2.5 mg PO HS 11/30/16 [Last Taken 12/25] Acetaminophen [Arthritis Pain Relief] 650 mg PO Q6-8PRN PRN #90 tablet.er [Last Taken Unknown] Amiodarone HCl [Pacerone (*)] 200 mg PO DAILY 12/26/16 [Last Taken 12/26/16] Warfarin Sodium [Coumadin 5MG (*)] 5 mg PO DAILY16 #30 tab 12/31/16 [Last Taken Unknown] Discharge Medications: Refer to the Discharge Home Medication list for PRN reason. PICC Care - Routine: N/A - Orders Services needed: Registered Nurse, Physical Therapy Diet Recommendation: no restrictions on diet, cardiac -low fat low salt Diet Texture: Regular Texture Diet Cesar: Not applicable - Labs/Radiology HCT/HGB Date: 01/03/17 PT/INR Date: 01/03/17 - Follow Up Care Current Providers and Referrals: Nam Vargas MD [Primary Care Provider] - As per Instructions Олег Mittal MD [Medical Doctor] - follow up in 2 weeks
--- NOTE | 2016-12-31 09:11 | GDS ---
[f rep st] DISCHARGE SUMMARY PRIMARY SECONDARY TEACHER: Dr. Олег Mittal. DISCHARGE DIAGNOSES: 1. Left upper extremity deep venous thrombosis, which occurred post pacemaker lead revision. INR is currently therapeutic at 2.12. 2. Gnpem-vp-namcejz renal insufficiency. Resolved with holding Lasix. 3. Sick sinus syndrome, status post DDDR pacemaker on December 04 with atrial lead revision on . 4. Premature ventricular contractions. Currently on amiodarone. 5. Possible thoracic outlet concerns. HOSPITAL COURSE: For a detailed H and P, please see prior dictation. Briefly, the patient is an 89- year-old male who was initially seen in our office complaining of fatigue and found to have frequent PVCs. He was admitted for sotalol loading, but developed bradycardia, and therefore sotalol was disc ontinued. A dual-chamber pacemaker was placed on December 04, and he was started on amiodarone. Thi s improved his frequent PVCs, but he presented back to our office complaining of more fatigue. His a trial lead had dislodged, and therefore he was taken back to the blood bank laboratory technician by Dr. Олег Mittal on for an atrial lead revision. A week after his revision, he noted left upper extremity edema . Two weeks after his revision, he called our office complaining of edema. He was sent for a left u pper extremity ultrasound, and he was found to have an extensive clot involving the humeral level bra chiocephalic veins as well as central vessels of the subclavian vein, innominate vein and jugular vei n. There was also thoracic outlet physiology, given the small subclavian vein with acute thrombosis. He was admitted to the hospital and started on heparin as well as Coumadin. He remained in the [facility] until his INR was therapeutic. His INR today is currently 2.12. He became mildly febrile on , which resolved with Tylenol. His white blood cell count has been within normal limits, and he has not been febrile since. Blood cultures were ordered and currently have been negative. PHYSICAL EXAMINATION: GENERAL: Patient appears in no acute distress. VITALS: Blood pressure 121/7 9, heart rate 100, oxygen saturation of 91% on room air. Afebrile. NECK: No carotid bruits or JVD present. LUNGS: Clear to auscultation. No wheezes, rhonchi or crackles auscultated. CARDIAC: Reg ular rate and rhythm without any significant murmurs, rubs or gallops appreciated. EXTREMITIES: Upp er extremities, he has mild edema of his left hand, which has significantly improved. He has no violetta a of the lower extremities. He has bilateral palpable radial pulses as well as distal pulses. DISCHARGE MEDICATIONS: Amiodarone 200 mg daily, Coumadin 5 mg daily, pravastatin 10 mg at bedtime, S ynthroid 100 mcg daily, Norvasc 2.5 mg daily, melatonin 3 mg at bedtime, Tylenol p.r.n. for arthritis . Lasix and potassium were discontinued. PLAN: The patient is currently stable and ready for discharge to rehab facility. He is scheduled to go to [place] today. He will need to remain on Coumadin with an INR goal of 2-3. He is schedu led for an INR check on Monday next week. He will also have a hemoglobin and hematocrit at that santy e. I would like him to call our office to schedule followup in 2 weeks if he has not heard from our office. /[id number]/MODL
--- NOTE | 2016-12-31 14:19 | ASMTCMCOM ---
CM Note CM Note Notes: Today Pt. ready for d/c. Paperwork completed and sent via [employer] to [facility] in [place]. Crissy at [facility] set up transport. Transport arranged for 12:00. Crissy informed SWer that she had already communicated w/ dtleatha Shearer about plan for garbage pick up man. Pt.. d/c'ed. D/c: Pt. d/c'ed to [facility] in [place], [place] today. Date Signed: 12/31/2016 02:19 PM Electronically Signed By:Brenda Garcia LCSW
--- NOTE | 2016-12-31 14:25 | ASDISCHSUM ---
Discharge Information Plan Status:SNF Medically Cleared to Leave: Discharge Date:12/31/2016 12:25 PM CM D/C Disposition:Fdc Facility ADT D/C Disposition:Fdc Facility Projected Discharge Date:12/29/2016 11:00 AM Transportation at D/C:Wheelchair Van Discharge Delay Reason: Follow-Up Date:12/29/2016 11:00 AM Discharge Slot: Final Diagnosis: Placement Information Referral Type:*Alf/SNF Referral ID:[id number] Provider Name:[facility] Address 1:[address] Address 2: City:[place] Selection Factors: State:[place] Patient Contact Information Contact Name:SARAH PENNINGTON Relationship:Daughter Address:[address] Work Phone: [facility] Phone: State/Zip Code:[place] [address] Email: Financial Information Financial Class:Medicare Advantage Plans Primary Plan Desc:[facility] ADVANTAGE PLAN Primary Plan Number:[id number] Secondary Plan Desc: Secondary Plan Number: Assessment Information [facility] CM Progress Note CM Note CM Note Notes: 12/27/2016 Case Management Note Phone call from daughter Janki ([facility]) [phone] this morning. Janki is a PT at [facility] and prefers pt return to [facility] at d/c. Pt admitted from [facility] in [place] yesterday for UE DVTFlaco Averyee is admission coordinator P: [phone] Pt has exceeeded 20 days of rehab and now has a daily copay of approximately $160/day. Pt expressed concern at ability to pay. Pt has 10 children and many are involved in his cares. Discussed needing 24/7 supervision if pt choses to not return to SNF. Pt requested time to speak with family. Spoke with Janki later in the day. Janki states that pt in agreement with need to return to SNF rehab. Faxed updated notes to facility. Case Management d/c poc: Return to [facility] when medically stable. Case Management to follow. Date Signed: 12/27/2016 02:05 PM Electronically Signed By:Maritza Abarca RN LACE LACE Length of stay for Answers: 2 days current admission Acuity / Level of Care Answers: Was the patient admitted to hospital via the emergency department? Yes: Emergency dept visits in Answers: 0 last 6 months Score: 5 Date Signed: 12/28/2016 09:56 AM Electronically Signed By:Radha Isabel RN [facility] CM Progress Note CM Note CM Note Notes: Chart reviewed Plan is still back to [facility]. CM to follow, 12/27/2016 Case Management Note Phone call from daughter Janki ([facility]) [phone] this morning. Janki is a PT at [facility] and prefers pt return to [facility] at d/c. Pt admitted from [facility] in [place] yesterday for UE DVT. Regina is admission coordinator P: [phone] Pt has exceeeded 20 days of rehab and now has a daily copay of approximately $160/day. Pt expressed concern at ability to pay. Pt has 10 children and many are involved in his cares. Discussed needing / supervision if pt choses to not return to SNF. Pt requested time to speak with family. Spoke with Janki later in the day. Janki states that pt in agreement with need to return to SNF rehab. Faxed updated notes to facility. Case Management d/c poc: Return to [facility] when medically stable. Case Management to follow. Date Signed: 12/28/2016 04:26 PM Electronically Signed By:Radha Isabel RN [facility] CM Progress Note CM Note CM Note Notes: CM spoke w/ NEELIMA Joyce and discuss d/c POC. Anticipates that pt will d/c tomorrow. CM spoke w/ Crissy at [facility] and provided her updates. CM to follow. Date Signed: 12/30/2016 11:59 AM Electronically Signed By:OJSE Adan [facility] CM Progress Note CM Note CM Note Notes: Today Pt. ready for d/c. Paperwork completed and sent via [employer] to [facility] in [place]. Crissy at [facility] set up transport. Transport arranged for 12:00. Crissy informed Marylu that she had already communicated w/ janinar Janki about plan for pickle solution maker. Pt.. d/c'ed. D/c: Pt. d/c'ed to [facility] in [place], [place] today. Date Signed: 12/31/2016 02:19 PM Electronically Signed By:Brenda Garcia LCSW Intervention Information Intervention Type:*SORIA-Signed Date of Service:12/27/2016 09:33 AM Patient Type:Observation Staff Member:Lin Zimmerman Hours: Discipline: Severity: Comment: Intervention Type:*IM-Signed Date of Service:12/30/2016 12:18 PM Patient Type:Inpatient Staff Member:Lin Zimmerman Hours: Discipline: Severity: Comment:
== END 2016-12-31 12:25 | DRG 316 ==
LOC: F2W 18:20 → OBSVTOIN 12-27 14:42
PROVIDERS: ADMIT Hospitalist; ATTEND Internal Medicine Cardiovascular Disease
DX: T82.817A Embolism due to cardiac prosthetic devices, implants and grafts, initial encounter (principal); N28.9 Disorder of kidney and ureter, unspecified; N18.9 Chronic kidney disease, unspecified; I49.3 Ventricular premature depolarization; E03.9 Hypothyroidism, unspecified; E78.00 Pure hypercholesterolemia, unspecified; Z95.0 Presence of cardiac pacemaker
CPT/HCPCS: 85520-90; 97165-GO; G0378; G8987-GO-CI; G8988-GO-CI; G8989-GO-CI; J1644

== ENCOUNTER 2017-01-16 10:25 | Emergency (ER) | payer OTHER ==
[2017-01-16 10:32] VITALS: RESP 18; TEMP 98.1
--- NOTE | 2017-01-16 11:28 | EDPHY ---
H & P Stated Complaint: brought by family for eval swelling LUE/pain since this morning HPI/ROS: CHIEF COMPLAINT: Left arm swelling and pain HISTORY OF PRESENT ILLNESS: The patient is an anticoagulated 89 y/o male arriving with his family member for left arm pain and swelling onset 02:00 this morning, almost 10 hours ago. He was admitted here on 12/26/16 for acute extensive LUE DVT that extended into his subclavian and jugular vein following pacemaker revision surgery. Last week he developed some leg bilateral swelling and saw his PCP, but they opted to not start Lasix at that time. Around 02:00 this morning, he woke with left arm pain and swelling that extended to his left lateral chest. His chest pain is not currently present, but he does complain of some left finger numbness. He is not currently experiencing arm pain. He has been compliant with his Coumadin and had it checked a few days ago through his PCP. At that time his INR was 2.01. REVIEW OF SYSTEMS: A ten point review of systems was performed and is negative with the exception of the items mentioned in the HPI. 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 Family history: noncontributory Social history: Lives in [place] at [facility], daughter at bedside Prior records reviewed including admission 12/27/16 for DVT. General Appearance: Alert. Vital signs reviewed. Eyes: Pupils equal and round, no conjunctival injection, no discharge. Anicteric. ENT, Mouth: Mucous membranes are moist, no oropharyngeal erythema or edema. Neck: No lymphadenopathy, supple. No cervical spine tenderness with palpation in the midline. No palpable paraspinous muscle spasm or tenderness. Respiratory: Lungs are clear to auscultation; no wheezes, rales, or rhonchi. Cardiovascular: Regular rate and rhythm; no murmur, rub, or gallop. Gastrointestinal: Abdomen is soft and nontender, no masses or organomegaly, bowel sounds normal. Skin: Warm and dry, no rashes on exposed skin, normal color. Back: Nontender to palpation over the thoracolumbar spine. No CVAT. Extremities: I do not appreciate swelling of the left upper extremity aside from some minor swelling of the digits of his left hand. No warmth or erythema of the skin of his left upper extremity. No erythematous streaking. 2+ lower extremity edema bilaterally extending 3/4 up his leg, no calf tenderness. Neurological: Alert and oriented. Moving all four extremities easily and equally. 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 Sensation is intact to light touch over both upper extremities. Psychiatric: Normal affect. - Personal History Current Tetanus Diphtheria and Acellular Pertussis (TDAP): No Tetanus Vaccine Date: allergic - Medical/Surgical History Hx Asthma: No Hx Chronic Respiratory Disease: No Hx Diabetes: No Hx Cardiac Disease: Yes Hx Renal Disease: No Hx Cirrhosis: No Hx Alcoholism: No Hx HIV/AIDS: No Hx Splenectomy or Spleen Trauma: No Other PMH: htn, PVCs; PVD; DVTs; Spinal stenosis; hypothyroid; hypothyroid; edema; hearing loss; memory loss; lytic lesion of bone; Pacer Nov 2016. - Social History Smoking Status: Never smoked Constitutional: Initial Vital Signs Temperature (C) 36.7 C 01/16/17 10:27 Heart Rate 98 01/16/17 10:27 Respiratory Rate 18 01/16/17 10:27 Blood Pressure 122/81 H 01/16/17 10:27 O2 Sat (%) 94 01/16/17 10:27 O2 Delivery Mode Room Air Allergies/Adverse Reactions: Penicillins Allergy (Unknown, Verified 01/16/17 10:26) Tetanus Vaccines and Toxoid [Tetanus Vaccines & Toxoid] Allergy (Unknown, Verified 01/16/17 10:26) Home Medications: Medication Instructions Recorded Levothyroxine [Synthroid 100 mcg 100 mcg PO DAILY06 03/02/15 (*)] Pravastatin Sodium 10 mg PO HS 03/02/15 Melatonin [Melatonin 3 MG (*)] 3 mg PO HS 11/30/16 amLODIPine BESYLATE [Norvasc 2.5 2.5 mg PO HS 11/30/16 mg (*)] Acetaminophen [Arthritis Pain 650 mg PO Q6-8PRN PRN #90 tablet.er 12/16/16 Relief] Amiodarone HCl [Pacerone (*)] 200 mg PO DAILY 12/26/16 Warfarin Sodium [Coumadin 5MG (*)] 5 mg PO DAILY16 #30 tab 12/31/16 Medical Decision Making - Diagnostics Imaging: Discussed imaging studies w/ call center consultant Radiologist, I viewed and interpreted images myself ED Course/Re-evaluation: This is an 89 y/o male with a recent history of recent extensive LUE DVT who presents with a 10-hour history of left arm pain and subjective swelling. I do not appreciate arm swelling or discoloration on exam. He does have bilateral 2+ pitting edema of his lower extremities. Plan for IV, labs, EKG, chest x-ray, and LUE US. The 12 lead EKG was interpreted by myself. See hard copy and/or "tracemaster" electronic copy for interpretation. Paced rhythm at 100 US shows improvement in clot burden. His INR is 1.96. Last INR was 2.01, per his family member. He is scheduled to have a recheck done Monday, day after tomorrow, when he sees Dr. Mittal. There is no evidence of worsening deeper superficial venous thrombosis. I do not suspect myocardial ischemia. He has a normal troponin and it has been over 10 hours since his pain began. At the time of my exam he is not experiencing chest pain. While in the emergency room he denied ongoing left arm pain. Initially he complained of some numbness of his of the fingers of his left hand but this seemed to have resolved prior to his discharge. Cervical radiculopathy is 1 possible explanation for the discomfort that he experienced earlier today. Differential Diagnosis: Considered a differential diagnosis includes but is not limited to ACS, worsening DVT, superficial thrombophlebitis, cellulitis, and radiculopathy. 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 Keep your appointment with Dr. Mittal on Monday. Return for new or worsening symptoms. Referrals: Nam Vargas MD [Primary Care Provider] - As per Instructions Олег Mittal MD [Medical Doctor] - As per Instructions Report Scribed for: Alisson Toussaint Report Scribed by: Lidia Ng Date of Report: 01/16/17 Time of Report: 11:33 Physician Review and Approval Statement: 01/16/17 11:27 Portions of this note were transcribed by the medical office coordinator. I, Dr. Alisson Toussaint, personally performed the history, physical exam, and medical decision- making; and confirmed the accuracy of the information in the transcribed note.
[2017-01-16 12:15] LABS: % IMMATURE GRANULYOCYTES 0.2 % (0.0-1.1); ABSOLUTE IMMATURE GRANULOCYTES 0.01 10^3/uL (0.00-0.10); ADD DIFF? NO; ADD MORPH? NO; ADD SCAN? NO; ATYPICAL LYMPHOCYTE FLAG 10 (0-99); FRAGMENT RBC FLAG 0 (0-99); HEMATOCRIT 34.3 % (40.0-51.0); HEMOGLOBIN 11.2 g/dL (13.7-17.5); LEFT SHIFT FLG 0 (0-99); LIPEMIA HEMOLYSIS FLAG 80 (0-99); MEAN CELL HEMOGLOBIN 29.7 pg (27.9-34.1); MEAN CELL HEMOGLOBIN CONCENTR. 32.7 g/dL (32.4-36.7); MEAN PLATELET VOLUME 10.3 fL (8.7-11.7); PLATELET CLUMPS FLAG 0 (0-99); PLATELET COUNT 241 10^3/uL (150-400); RED BLOOD CELL COUNT 3.77 10^6/uL (4.40-6.38); RED CELL DISTRIBUTION WIDTH 14.1 % (11.5-15.2)
--- NOTE | 2017-01-16 12:17 | CPEKG ---
Heart Rate: 100 RR Interval: 600 P-R Interval: 548 QRSD Interval: 176 QT Interval: 416 QTC Interval: 537 P [place]: 0 QRS [place]: -69 T Wave [place]: 124 EKG Severity - ABNORMAL ECG - EKG Impression: ATRIAL-VENTRICULAR DUAL-PACED COMPLEXES Electronically Signed By: Alisson Toussaint 16-Jan-2017 15:28:00
[2017-01-16 12:27] LABS: ANION GAP 11 mEq/L (8-16); CALCIUM 8.5 mg/dL (8.5-10.4); CARBON DIOXIDE 22 mEq/l (22-31); CHLORIDE 106 mEq/L (97-110); CREATININE 1.3 mg/dL (0.7-1.3); GLOMERULAR FILTRATION RATE 52; GLUCOSE 117 mg/dL (70-100); POTASSIUM 4.5 mEq/L (3.5-5.2); SODIUM 139 mEq/L (134-144)
[2017-01-16 12:30] LABS: INR 1.96 (0.83-1.16); PROTIME(PATIENT) 22.4 SEC (12.0-15.0)
[2017-01-16 12:31] LABS: APTT 38.1 SEC (23.0-38.0)
[2017-01-16 12:38] LABS: TROPONIN I < 0.012 ng/mL (0.000-0.034)
[2017-01-16 16:35] VITALS: BP 118/80; PULSE 96; O2SAT 96
== END 2017-01-16 16:35 | disposition home or self-care (01) ==
DX: I82.722 Chronic embolism and thrombosis of deep veins of left upper extremity (principal); I10 Essential (primary) hypertension; Z79.01 Long term (current) use of anticoagulants; Z95.0 Presence of cardiac pacemaker

== ENCOUNTER 2017-02-20 20:23 | Inpatient (IN) | payer OTHER ==
--- NOTE | 2017-02-20 20:55 | EDPHY ---
H & P Stated Complaint: SOB, FATIGUE X 1 DAY/ Time Seen by Provider: 02/20/17 20:55 - Personal History Current Tetanus Diphtheria and Acellular Pertussis (TDAP): No Tetanus Vaccine Date: allergic - Medical/Surgical History Hx Asthma: No Hx Chronic Respiratory Disease: No Hx Diabetes: No Hx Cardiac Disease: Yes Hx Renal Disease: No Hx Cirrhosis: No Hx Alcoholism: No Hx HIV/AIDS: No Hx Splenectomy or Spleen Trauma: No Other PMH: htn, PVCs; PVD; DVTs; Spinal stenosis; hypothyroid; hypothyroid; edema; hearing loss; memory loss; lytic lesion of bone; Pacer Nov 2016 - Social History Smoking Status: Never smoked Constitutional: Initial Vital Signs Temperature (C) 36.3 C 02/20/17 20:30 Heart Rate 98 02/20/17 20:30 Respiratory Rate 20 02/20/17 20:30 Blood Pressure 112/76 02/20/17 20:30 O2 Sat (%) 94 02/20/17 20:30 O2 Delivery Mode Nasal Cannula O2 (L/minute) 3 Allergies/Adverse Reactions: Penicillins Allergy (Unknown, Verified 01/16/17 10:26) Tetanus Vaccines and Toxoid [Tetanus Vaccines & Toxoid] Allergy (Unknown, Verified 01/16/17 10:26) Home Medications: Medication Instructions Recorded Levothyroxine [Synthroid 100 mcg 100 mcg PO DAILY06 03/02/15 (*)] Pravastatin Sodium 10 mg PO HS 03/02/15 Melatonin [Melatonin 3 MG (*)] 3 mg PO HS 11/30/16 amLODIPine BESYLATE [Norvasc 2.5 2.5 mg PO HS 11/30/16 mg (*)] Acetaminophen [Arthritis Pain 650 mg PO Q6-8PRN PRN #90 tablet.er 12/16/16 Relief] Amiodarone HCl [Pacerone (*)] 200 mg PO DAILY 12/26/16 Warfarin Sodium [Coumadin 5MG (*)] 5 mg PO DAILY16 #30 tab 12/31/16 Medical Decision Making - Diagnostics Imaging: I viewed and interpreted images myself ED Course/Re-evaluation: CHIEF COMPLAINT: Dyspnea and fatigue HISTORY OF PRESENT ILLNESS: The patient is an anticoagulated 89 y/o male arriving with his daughter complaining of significant fatigue and dyspnea with even mild exertion for the last week. He was admitted in December for extensive left upper extremity DVT extending into his subclavian and jugular vein following pacemaker revision and returned to the ED in January for left arm pain. During that subsequent visit US showed improvement in DVT. He was on Coumadin at that time. Over the last week, he's developed increasing general fatigue and shortness of breath with any exertion. He specifically describes shortness of breath when bending over to tie his shoes. His daughter mentions she doesn't want him on Lasix "because it dries out his kidneys," though it's not clear there is a known CHF diagnosis. He denies fever, chills, cough, chest pain, abdominal pain, diarrhea, sore throat, recent trauma, or recent illness. REVIEW OF SYSTEMS: A 10 point review of systems was performed and is negative with the exception of the elements mentioned in the history of present illness. PHYSICAL EXAM: 102 HR, BP, 91% O2 Sat on room air, RR. Temp noted General Appearance: Alert, well hydrated, appropriate, and non-toxic appearing. Head: Atraumatic without scalp tenderness or obvious injury Eyes: Pupils equal, round, reactive to light and accommodation, EOMI, no trauma , no injection. Nose: Atraumatic, no rhinorrhea, clear. Throat: Mucus membranes moist. Neck: Supple, nontender, no lymphadenopathy. Respiratory: No retractions, no distress, no wheezes, and no accessory muscle use. Lungs are clear to auscultation bilaterally. Cardiovascular: Regular rate and rhythm, no murmurs, rubs, or gallops. Good capillary refill all extremities. Gastrointestinal: Abdomen is soft, nontender, non-distended, no masses, no rebound, no guarding, no peritoneal signs. Musculoskeletal: Normal active ROM of all extremities, atraumatic. Neurological: Alert, appropriate, and interactive. The patient has non-focal cranial nerves, motor, sensory, and cerebellar exam. Skin: No rashes, good turgor, no nodules on palpation. Past medical history: Hypertension; peripheral vascular disease; DVTs following pacemaker revision Dec 2016 - Coumadin; spinal stenosis; hypothyroid; hearing loss; memory loss; lytic lesion of bone Past surgical history: Pacer placement Nov 2016 and revision Dec 2016 Family history: Noncontributory Social history: Daughter at bedside. Speaks Albanian and Mongolian, though daughter translated some phrases for him. Lives in [place]. Prior medical records reviewed including admission 12/27/16 for DVT and ED visit 01/16/17 for left arm pain. DIAGNOSTICS/PROCEDURES/CRITICAL CARE TIME: Chest x-ray: CHF The 12 lead EKG was interpreted by myself. Atrial-ventricular dual-paced rhythm rate 100. See hard copy and/or "tracemaster" electronic copy for interpretation. DIFFERENTIAL DIAGNOSIS: The differential diagnosis for the patient's shortness of breath and hypoxemia included but was not limited to pneumonia, myocardial infarction, acute mountain sickness, high altitude pulmonary edema, congestive heart failure, and pulmonary embolus. MEDICAL DECISION MAKING: This is an anticoagulated 89 y/o male with recent extensive LUE DVT who presents with a 1-week history of dyspnea with even minimal exertion. No significant exam findings. Chest CTA ordered due to patient's high risk for PE. Underlying CHF could be contributing factor. IV established. Labs drawn. Patient placed on cardiac specialist. Chest CTA cancelled due to elevated creatinine of 1.7. Chest x-ray ordered. BNP elevated around 17,000. Hgb low at 11.8. INR is therapeutic. Chest x-ray shows CHF. Spoke with hospitalist service. Dr. Noyola accepts admission to [facility] for CHF and renal insufficiency. - Data Points Laboratory Results: Laboratory Results 02/20/17 21:05 02/20/17 21:05 02/20/17 02/20/17 02/20/17 21:11 21:05 21:05 WBC RBC Hgb POC Hgb 11.6 gm/dL L gm/dL (13.7-17.5) Hct POC Hct 34 % L % (40-51) MCV MCH MCHC RDW Plt Count MPV Neut % (Auto) Lymph % (Auto) [place] % (Auto) Eos % (Auto) Baso % (Auto) Nucleat RBC Rel Count Absolute Neuts (auto) Absolute Lymphs (auto) Absolute Monos (auto) Absolute Eos (auto) Absolute Basos (auto) Absolute Nucleated RBC Immature Gran % Immature Gran # PT 27.7 SEC H SEC (12.0-15.0) INR 2.59 H (0.83-1.16) APTT 41.0 SEC H SEC (23.0-38.0) POC Sodium 139 mEq/L mEq/L (134-144) Sodium 137 mEq/L mEq/L (134-144) POC Potassium 4.3 mEq/L mEq/L (3.3-5.0) Potassium 4.6 mEq/L mEq/L (3.5-5.2) POC Chloride 108 mEq/L mEq/L (97-110) Chloride 107 mEq/L mEq/L (97-110) Carbon Dioxide 16 mEq/l L mEq/l (22-31) Anion Gap 14 mEq/L mEq/L (8-16) POC BUN 24 mg/dL H mg/dL (7-23) BUN 23 mg/dL mg/dL (7-23) Creatinine 1.5 mg/dL H mg/dL (0.7-1.3) POC Creatinine 1.7 mg/dL H mg/dL (0.7-1.3) Estimated GFR 44 Glucose 115 mg/dL H mg/dL (70-100) POC Glucose 120 mg/dL H mg/dL (70-100) Calcium 8.5 mg/dL mg/dL (8.5-10.4) Troponin I 0.023 ng/mL ng/mL (0.000-0.034) NT-Pro-B Natriuret Pep 19681 pg/mL H pg/mL (0-450) 02/20/17 21:05 WBC 6.29 10^3/uL 10^3/uL (3.80-9.50) RBC 3.93 10^6/uL L 10^6/uL (4.40-6.38) Hgb 11.8 g/dL L g/dL (13.7-17.5) POC Hgb Hct 36.1 % L % (40.0-51.0) POC Hct MCV 91.9 fL fL (81.5-99.8) MCH 30.0 pg pg (27.9-34.1) MCHC 32.7 g/dL g/dL (32.4-36.7) RDW 16.6 % H % (11.5-15.2) Plt Count 193 10^3/uL 10^3/uL (150-400) MPV 10.6 fL fL (8.7-11.7) Neut % (Auto) 73.5 % % (39.3-74.2) Lymph % (Auto) 15.4 % % (15.0-45.0) [place] % (Auto) 9.1 % % (4.5-13.0) Eos % (Auto) 1.0 % % (0.6-7.6) Baso % (Auto) 0.5 % % (0.3-1.7) Nucleat RBC Rel Count 0.0 % % (0.0-0.2) Absolute Neuts (auto) 4.63 10^3/uL 10^3/uL (1.70-6.50) Absolute Lymphs (auto) 0.97 10^3/uL L 10^3/uL (1.00-3.00) Absolute Monos (auto) 0.57 10^3/uL 10^3/uL (0.30-0.80) Absolute Eos (auto) 0.06 10^3/uL 10^3/uL (0.03-0.40) Absolute Basos (auto) 0.03 10^3/uL 10^3/uL (0.02-0.10) Absolute Nucleated RBC 0.00 10^3/uL 10^3/uL (0-0.01) Immature Gran % 0.5 % % (0.0-1.1) Immature Gran # 0.03 10^3/uL 10^3/uL (0.00-0.10) PT INR APTT POC Sodium Sodium POC Potassium Potassium POC Chloride Chloride Carbon Dioxide Anion Gap POC BUN BUN Creatinine POC Creatinine Estimated GFR Glucose POC Glucose Calcium Troponin I NT-Pro-B Natriuret Pep Point of Care Test Results: 02/20/17 21:11 POC Sodium 139 POC Potassium 4.3 POC Chloride 108 POC BUN 24 H POC Creatinine 1.7 H POC Glucose 120 H Departure - Departure Disposition: [facility] Inpatient Acute Clinical Impression: Renal insufficiency Dyspnea Qualifiers: Dyspnea type: shortness of breath Qualified Code(s): R06.02 - Shortness of breath CHF (congestive heart failure) Qualifiers: Congestive heart failure type: unspecified congestive heart failure type Congestive heart failure chronicity: unspecified congestive heart failure chronicity Qualified Code(s): I50.9 - Heart failure, unspecified Condition: Fair Referrals: Nam Vargas MD [Primary Care Provider] - As per Instructions Report Scribed for: Tarun Camacho Report Scribed by: Lidia Ng Date of Report: 02/20/17 Time of Report: 21:53
[2017-02-20 21:28] LABS: % IMMATURE GRANULYOCYTES 0.5 % (0.0-1.1); ABSOLUTE IMMATURE GRANULOCYTES 0.03 10^3/uL (0.00-0.10); ADD DIFF? NO; ADD MORPH? NO; ADD SCAN? NO; ATYPICAL LYMPHOCYTE FLAG 0 (0-99); FRAGMENT RBC FLAG 0 (0-99); HEMATOCRIT 36.1 % (40.0-51.0); HEMOGLOBIN 11.8 g/dL (13.7-17.5); LEFT SHIFT FLG 0 (0-99); LIPEMIA HEMOLYSIS FLAG 80 (0-99); MEAN CELL HEMOGLOBIN CONCENTR. 32.7 g/dL (32.4-36.7); MEAN CELL VOLUME 91.9 fL (81.5-99.8); MEAN PLATELET VOLUME 10.6 fL (8.7-11.7); PLATELET CLUMPS FLAG 0 (0-99); PLATELET COUNT 193 10^3/uL (150-400); RED BLOOD CELL COUNT 3.93 10^6/uL (4.40-6.38); RED CELL DISTRIBUTION WIDTH 16.6 % (11.5-15.2)
[2017-02-20 21:40] LABS: ANION GAP 14 mEq/L (8-16); CALCIUM 8.5 mg/dL (8.5-10.4); CARBON DIOXIDE 16 mEq/l (22-31); CHLORIDE 107 mEq/L (97-110); CREATININE 1.5 mg/dL (0.7-1.3); GLOMERULAR FILTRATION RATE 44; GLUCOSE 115 mg/dL (70-100); INR 2.59 (0.83-1.16); POTASSIUM 4.6 mEq/L (3.5-5.2); PROTIME(PATIENT) 27.7 SEC (12.0-15.0); SODIUM 137 mEq/L (134-144)
--- NOTE | 2017-02-20 21:43 | CPEKG ---
Heart Rate: 100 RR Interval: 600 P-R Interval: 107 QRSD Interval: 186 QT Interval: 460 QTC Interval: 594 P Montgomery: 0 QRS Montgomery: -56 T Wave Montgomery: 133 EKG Severity - ABNORMAL ECG - EKG Impression: ATRIAL-VENTRICULAR DUAL-PACED RHYTHM Electronically Signed By: Tarun Camacho 20-Feb-2017 22:46:41
[2017-02-20 21:52] LABS: TROPONIN I 0.023 ng/mL (0.000-0.034)
[2017-02-20] MEDS ORDERED: ONDANSETRON 4 MG/2 ML VIAL IVP PRN (23:34)
[2017-02-20] MEDS ORDERED: ACETAMINOPHEN 325 MG TAB PO PRN (23:34)
[2017-02-21] MEDS ORDERED: FUROSEMIDE 20 MG/2 ML VIAL IVP ONE (00:45)
--- NOTE | 2017-02-21 01:59 | PDGENHP ---
History and Physical - Chief Complaint dyspnea - History of Present Illness Source - patient able to provide history regarding ROS and hpi. Daughter at bedside and supplements history. EMR reviewed. Case discussed with ED provider. 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 Daughter keeps extensive VS/weight logs daily and notes approximately 13 lb weight gain since Feb 03 shortly after patient was discharged from rehab facility. Patient with increasing complaint of SOB in the last few days. He notes increasing lower extremity edema since that time as well. He denies any fevers/chills. has had a nonproductive cough in the last few days. no sick contacts. Daughter also concerned as patient with significant ULLOA and even bending down to tie his shoes wears him out. given his increasing respiratory symptoms patient became concerned as he has a history of PNA in 2013 and wanted to be evaluated for this. Patient daughter had reported some concern regarding given the patient lasix due to his history of acute on chronic kidney disease with chronic lasix therapy. Patient PCP had attempted to titrate down patient lasix by half however creatinine was noted to be increased and patient subsequently taken off with instructions for low sodium diet and fluid restrictions. Daughter admits patient with some salty food x 1 on Monday but otherwise is monitored closely. History Information - Allergies/Home Medication List Allergies/Adverse Reactions: Penicillins Allergy (Unknown, Verified 01/16/17 10:26) Tetanus Vaccines and Toxoid [Tetanus Vaccines & Toxoid] Allergy (Unknown, Verified 01/16/17 10:26) Home Medications: Levothyroxine [Synthroid 100 mcg (*)] 100 mcg PO DAILY06 03/02/15 [Last Taken ] Pravastatin Sodium 10 mg PO HS 03/02/15 [Last Taken 12/25/16] Melatonin [Melatonin 3 MG (*)] 3 mg PO HS 11/30/16 [Last Taken 12/25/16] amLODIPine BESYLATE [Norvasc 2.5 mg (*)] 2.5 mg PO HS 11/30/16 [Last Taken 12/25] Amiodarone HCl [Pacerone (*)] 200 mg PO DAILY 10/23/17 [Last Taken 12/26/16] I have personally reviewed and updated: family history, medical history, social history, surgical history - Past Medical History Additional medical history: hypothyroidism. bradycardia s/p pacer. dvt related to pacer now on coumadin. CHF unspecified. benign essential HTN. HLD. PVD. CKD stage 3 baseline cr appears 1.2. 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 lytic lesions on imaging 12/2016. hx of LLL PNA/effusion 2013. lumbar spinal stenosis. hearing deficit. memory decline - Surgical History Additional surgical history: pacer 11/2016, revision 12/2016. appy, c/scope, hernia repair, TURP - Family History Additional family history: denies - Social History Smoking Status: Never smoked Additional social history: patient with 10 children. lives with daughter in [place]. denies tobacco/drugs/etoh. COR - FULL. Review of Systems Review of Systems: ROS: 10pt was reviewed & negative except for what was stated in HPI & below Constitutional: Reports: no symptoms. Denies: chills, fever EENMT: Reports: no symptoms, other (dry mouth). Denies: blurred vision, nose congestion Cardiac: Reports: edema. Denies: chest pain, lightheadedness, palpitations, syncope Respiratory: Reports: cough, shortness of breath. Denies: orthopnea, wheezing Gastrointestinal: Denies: vomitting, abdominal pain, diarrhea, nausea Genitourinary: Denies: dysuria, hematuria Muscolosketal: Reports: no symptoms Skin: Reports: no symptoms Neurological: Reports: no symptoms. Denies: anxiety, depressed, headache, weakness Hematologic/Lymphatic: Denies: easy bleeding, easy bruising Physical Exam Physical Exam: Selected Entries 02/20/17 20:30 Blood Pressure Automatic Method Heart Rate 98 Respiratory 20 Rate O2 Sat (%) 94 Temperature (C) 36.3 C Blood Pressure 112/76 Mean Arterial 88 Pressure (MAP) O2 Delivery Room Air Mode Temperature Oral Source Temp Pulse Resp BP Pulse Ox 36.7 C 98 16 117/81 H 97 02/20/17 23:51 02/20/17 23:51 02/20/17 23:51 02/20/17 23:51 02/20/17 23:51 O2 (L/minute) 4 Constitutional: no apparent distress, appears nourished, not in pain, chronically ill appearing, obese Eyes: PERRL, anicteric sclera, EOMI, No icteric sclera, No scleral injection Ears, Nose, Mouth, Throat: moist mucous membranes, no oral mucosal ulcers, poor dentition (missing dentition) Cardiovascular: systolic murmur (3/6 systolic), irregularly irregular, edema (2 + pitting bilateral lower legs/feet distal to knees) Peripheral Pulses: 1+: dorsalis-pedis (R) (limited with edema), dorsalis-pedis ( L) (limited with edema) Respiratory: no respiratory distress (mild increased work of breathing with movement and talking), reduced air movement (diminished at bases. ), inspiratory crackles (few bibasilar.), No expiratory wheeze Gastrointestinal: normoactive bowel sounds, soft, non-tender abdomen, no palpable masses, other (obese abdomen), No guarding, No distension Genitourinary: no bladder tenderness, No carr in urethra Skin: warm, normal color, no rashes or abrasions, other (some dry skin lower extremities. ), No mottled, No rash Musculoskeletal: generalized weakness, No joint tenderness Neurologic: AAOx3, sensation intact bilaterally, CN II-XII Intact, No facial droop Psychiatric: interacting appropriately, not anxious, not encephalopathic, thought process linear, other (some difficulty hearing. fluent in portuguese but daughter occasionally rephrases in lebanese. ), No poor insight, No poor judgement, No poor memory Lab Data & Imaging Review 02/21/17 03:45 02/21/17 03:45 WBC 6.29 10^3/uL (3.80-9.50) 02/20/17 21:05 RBC 3.93 10^6/uL (4.40-6.38) L 02/20/17 21:05 Hgb 11.8 g/dL (13.7-17.5) L 02/20/17 21:05 POC Hgb 11.6 gm/dL (13.7-17.5) L 02/20/17 21:11 Hct 36.1 % (40.0-51.0) L 02/20/17 21:05 POC Hct 34 % (40-51) L 02/20/17 21:11 MCV 91.9 fL (81.5-99.8) 02/20/17 21:05 MCH 30.0 pg (27.9-34.1) 02/20/17 21:05 MCHC 32.7 g/dL (32.4-36.7) 02/20/17 21:05 RDW 16.6 % (11.5-15.2) H 02/20/17 21:05 Plt Count 193 10^3/uL (150-400) 02/20/17 21:05 MPV 10.6 fL (8.7-11.7) 02/20/17 21:05 Neut % (Auto) 73.5 % (39.3-74.2) 02/20/17 21:05 Lymph % (Auto) 15.4 % (15.0-45.0) 02/20/17 21:05 Lares % (Auto) 9.1 % (4.5-13.0) 02/20/17 21:05 Eos % (Auto) 1.0 % (0.6-7.6) 02/20/17 21:05 Baso % (Auto) 0.5 % (0.3-1.7) 02/20/17 21:05 Nucleat RBC Rel Count 0.0 % (0.0-0.2) 02/20/17 21:05 Absolute Neuts (auto) 4.63 10^3/uL (1.70-6.50) 02/20/17 21:05 Absolute Lymphs (auto) 0.97 10^3/uL (1.00-3.00) L 02/20/17 21:05 Absolute Monos (auto) 0.57 10^3/uL (0.30-0.80) 02/20/17 21:05 Absolute Eos (auto) 0.06 10^3/uL (0.03-0.40) 02/20/17 21:05 Absolute Basos (auto) 0.03 10^3/uL (0.02-0.10) 02/20/17 21:05 Absolute Nucleated RBC 0.00 10^3/uL (0-0.01) 02/20/17 21:05 Immature Gran % 0.5 % (0.0-1.1) 02/20/17 21:05 Immature Gran # 0.03 10^3/uL (0.00-0.10) 02/20/17 21:05 PT 27.7 SEC (12.0-15.0) H 02/20/17 21:05 INR 2.59 (0.83-1.16) H 02/20/17 21:05 APTT 41.0 SEC (23.0-38.0) H 02/20/17 21:05 POC Sodium 139 mEq/L (134-144) 02/20/17 21:11 Sodium 137 mEq/L (134-144) 02/20/17 21:05 POC Potassium 4.3 mEq/L (3.3-5.0) 02/20/17 21:11 Potassium 4.6 mEq/L (3.5-5.2) 02/20/17 21:05 POC Chloride 108 mEq/L (97-110) 02/20/17 21:11 Chloride 107 mEq/L (97-110) 02/20/17 21:05 Carbon Dioxide 16 mEq/l (22-31) L 02/20/17 21:05 Anion Gap 14 mEq/L (8-16) 02/20/17 21:05 POC BUN 24 mg/dL (7-23) H 02/20/17 21:11 BUN 23 mg/dL (7-23) 02/20/17 21:05 Creatinine 1.5 mg/dL (0.7-1.3) H 02/20/17 21:05 POC Creatinine 1.7 mg/dL (0.7-1.3) H 02/20/17 21:11 Estimated GFR 44 02/20/17 21:05 Glucose 115 mg/dL (70-100) H 02/20/17 21:05 POC Glucose 120 mg/dL (70-100) H 02/20/17 21:11 Calcium 8.5 mg/dL (8.5-10.4) 02/20/17 21:05 Troponin I 0.023 ng/mL (0.000-0.034) 02/20/17 21:05 NT-Pro-B Natriuret Pep 63171 pg/mL (0-450) H 02/20/17 21:05 Imaging Review: Chest, Two Views at 2201 hours History: dyspnea Comparison: January 2017 Findings: Cardiac silhouette is moderately enlarged. Bipolar pacemaker without pneumothorax. Bilateral mild pulmonary edema pattern with possible small right pleural effusion. Impression: 1. Cardiomegaly and mild congestive heart failure. 2. Pacemaker without pneumothorax. Visualized and Interpreted Chest x-ray results: Yes EKG additional interpertation: av paced 100s. Assessment & Plan Assessment: Pleasant 89 yo M with hx of bradycardia s/p pacer on coumadin for related DVT, CHF who presents with several days worsening dyspnea, LE edema, weight gain, cough. 1. acute on chronic CHF decompensated unspecified - unable to locate recent echo. after discussion with the daughter and reassured that renal function will be monitored closely and daily she is amenable to proceed with one time dose lasix. will fluid and salt restrict. monitor I/Os. diuresis as renal function permits. cardiology consult in AM as per day team. Daughter states patient is followed by Dr. Hull/Dr. Mittal. CM consultation to evaluation if patient candidate for CHF programs o/p. 2. dyspnea - related to CHF. inr is therapeutic and not likely to be PE. no evidence of PNA at this time. diuresis and plan as above. O2 to maintain sats > 90%. daughter concerned that patient may require home o2. will plan exertional pulse ox and possibly overnight pulse ox once patient stabilized. 3. acute on CKD 3 - baseline appears to be 1.2-1.3 currently 1.5. likely patient with some decreased perfusion and so will diuresis with lasix as noted above. again monitor renal function closely. 4. QT prolongation - monitor electrolytes. pt paced. on tele. continue amiodarone as per cards. 5. pacer - cardiology consult as above. 6. hx DVT on coumadin - RX consult to assist with dosing. monitor PT/INR 7. hx PVCs - on tele. monitor electrolytes 8. benign essential HTN - BPs acceptable at this time. continue amlodipine. not likely contributing factor with edema and pulm vascular congestion more likely CHF. 9. HLD - continue statin. 10. PVD - on coumadin, statin. 11. lumbar spinal stenosis - pt without c/o pain at this time. supportive care. tylenol prn. FEN - SLIV. lasix as above. monitor electrolytes. low salt diet. fluid restriction. PPX - on coumadin and therapeutic. COR - FULL discussed with patient and daughter at bedside. Dispo - Admit to observation at this time for acute on chronic CHF.
[2017-02-21 04:21] LABS: % IMMATURE GRANULYOCYTES 0.4 % (0.0-1.1); ABSOLUTE IMMATURE GRANULOCYTES 0.02 10^3/uL (0.00-0.10); ADD DIFF? NO; ADD MORPH? NO; ADD SCAN? NO; ATYPICAL LYMPHOCYTE FLAG 0 (0-99); FRAGMENT RBC FLAG 0 (0-99); HEMATOCRIT 35.5 % (40.0-51.0); HEMOGLOBIN 11.7 g/dL (13.7-17.5); LEFT SHIFT FLG 0 (0-99); LIPEMIA HEMOLYSIS FLAG 80 (0-99); MEAN PLATELET VOLUME 10.9 fL (8.7-11.7); PLATELET CLUMPS FLAG 0 (0-99); PLATELET COUNT 176 10^3/uL (150-400); RED CELL DISTRIBUTION WIDTH 16.7 % (11.5-15.2)
[2017-02-21 04:27] LABS: APTT 42.6 SEC (23.0-38.0); INR 2.61 (0.83-1.16); PROTIME(PATIENT) 27.9 SEC (12.0-15.0)
[2017-02-21 04:45] LABS: ANION GAP 12 mEq/L (8-16); CALCIUM 8.3 mg/dL (8.5-10.4); CARBON DIOXIDE 19 mEq/l (22-31); CHLORIDE 108 mEq/L (97-110); CREATININE 1.5 mg/dL (0.7-1.3); GLOMERULAR FILTRATION RATE 44; GLUCOSE 101 mg/dL (70-100); POTASSIUM 4.3 mEq/L (3.5-5.2); SODIUM 139 mEq/L (134-144)
--- NOTE | 2017-02-21 08:52 | HOSPPROG ---
Hospitalist Progress Note Assessment/Plan: 89 yo macanese speaking M with hx of bradycardia s/p pacer on coumadin for related DVT, who presents with several days worsening dyspnea, LE edema, weight gain, cough. acute on chronic HF - Looks like his baseline weight is around 78 kg, currently 81.2 kg. No recent echo available for review. -check echo -cont diuresis -fluid and salt restrict -monitor I/Os, daily weights acute hypoxemic respiratory failure 2/2 above - may require home O2 acute on CKD 3 - baseline appears to be 1.2-1.3 currently 1.5. May be a cardiorenal component -follow Cr closely with diuresis QT prolongation - monitor electrolytes. pt paced. on tele. continue amiodarone as per cards. H/O DVT on coumadin - INR therapeutic. Pharmacy to dose coumadin. HTN - BPs acceptable at this time. On Amlodipine. If he has systolic dysfunction on echo, may be better served by BB and/or Arvin. -await echo HLD - continue statin. PVD - on coumadin, statin. H/O bradycardia s/p pacer Full code Dispo - Change to inpt for ongoing heart failure management. Needs PT/OT consults. Had recent SNF stay. Subjective: Pt feels okay. Denies CP or SOB at rest, but notes he becomes quite dyspneic with any activity. +peripheral edema. Appetite good. Had 600 cc 's uop after 20 mg IV lasix last night. Objective: Vital Signs Temp Pulse Resp BP Pulse Ox 36.6 C 100 20 121/81 H 92 02/21/17 07:41 02/21/17 07:41 02/21/17 07:41 02/21/17 07:41 02/21/17 07:41 Laboratory Results 02/21/17 03:45 02/21/17 03:45 02/20/17 02/21/17 02/22/17 05:59 05:59 05:59 Intake Total 200 Output Total 900 Balance -700 PT 27.9 SEC (12.0-15.0) H 02/21/17 03:45 INR 2.61 (0.83-1.16) H 02/21/17 03:45 - Physical Exam Constitutional: no apparent distress Eyes: PERRL Ears, Nose, Mouth, Throat: moist mucous membranes Cardiovascular: regular rate and rhythym Respiratory: no respiratory distress, inspiratory crackles Gastrointestinal: normoactive bowel sounds, soft, non-tender abdomen Skin: warm Musculoskeletal: full muscle strength, other (1+ b/l LE pitting edema) Neurologic: AAOx3 Psychiatric: interacting appropriately ICD10 Worksheet Patient Problems: Problems Problem Status Onset CHF (congestive heart failure) Acute Dyspnea Acute Renal insufficiency Acute DVT (deep venous thrombosis) Acute PVC (premature ventricular contraction) Acute S/P placement of cardiac pacemaker Acute
[2017-02-21] MEDS: AMIODARONE HCL 200 MG TAB PO SCH (10:26)
[2017-02-21] MEDS: FUROSEMIDE 20 MG/2 ML VIAL IVP SCH ×2 (10:26→15:31)
[2017-02-21] MEDS: LEVOTHYROXINE 100 MCG TAB PO SCH (10:26)
--- NOTE | 2017-02-21 11:35 | PDMN ---
Medical Necessity Medical necessity: Patient meets inpatentt criteria per physician note and CMS guidelines -- acute on chronic heart failure w/ acute hypoxemic resp failure and acute on CKD: patient presents w/several day hx of worsening dyspnea, LE edema, weight gain, cough. Creat 1.5/baseline 1.2-1.3; LOS will be > 2 midnights as patient will require ongoing diuresis, fluid and Na restriction, monitored I/O's, close monitor of Creat w/diuresis.
--- NOTE | 2017-02-21 13:52 | ECHO ---
[email or web address] [address] [address] Main: [phone] Fax: Transthoracic Echocardiogram Name: ENRIQUE MCKENNA MR#: [id number] Study Date: 02/21/2017 Study Time: 09:46 AM Date of : 1925 Age: 89 year(s) Height: 167.6 cm (66 in.) Weight: 81.19 kg (179 lb.) BSA: 1.91 m2 Gender: Male Examination: Echo Indication: Acute/chronic heart failure, Pacer Image Quality: Contrast: Requested by: Nidia Gooden BP: 121 mmHg/81 mmHg Heart Rate: Rhythm: Indication: Acute/chronic heart failure, Pacer Procedure Staff Bowling Ball Grader: Larissa Richards Reading Physician: David Woodward Requesting Provider: Conclusions: Normal size left ventricle. Severely reduced systolic LV function. The ejection fraction is estimated to be 20-25 %. There is paradoxic septal motion suggestive of bundle branch block, paced cardiac rhythm, or prior cardiac surgery. Moderately reduced RV function. The left atrium is moderately dilated. The right atrium is mildly dilated. Moderate mitral valve regurgitation is present. Moderate aortic valve regurgitation is present. Severe tricuspid regurgitation is present. The pulmonary artery pressure is moderately increased. Measurements: Chambers Valvular Assessment AV/MV Valvular Assessment TV/PV Normal Normal Normal Name Value Range Name Value Range Name Value Range Ao Cristy (MM): 3.7 cm (2.2 cm-3.7 AV meanP mmHg ( - ) TR Vmax: 3.09 mm/s ( - ) cm) AR (PHT): 302 ms ( - ) TR PGmax: 38 mmHg ( - ) IVSd (2D): 1.2 cm (0.6 cm-1.1 MV E Vmax: 0.78 m/s ( - ) syst. PAP: 43 mmHg ( - ) cm) MV A Vmax: 0.47 m/s ( - ) LVDd (2D): 5.2 cm (4.2 cm-5.9 MV E/A: 1.66 ( - ) cm) LVDs (2D): 4.6 cm (2.1 cm-4 cm) LVPWd (2D): 1.0 cm (0.6 cm-1 cm) LVEF (MOD4): 26 % (>=55 %) EF Range: 20-25 % Patient: ENRIQUE MCKENNA Study Date: 02/21/2017 Page 1 of 2 09:46 AM Continued Measurements: Chambers Valvular Assessment AV/MV Valvular Assessment TV/PV Name Value Name Value Name Value LADs: 4.7 cm MV E' Septal: 0.04 m/s CVP (est.): 5 mmHg LADs Lon.7 cm MV E/E' Septal: 17.80 LA Area: 23.6 cm2 MV E/E' Lateral: 12.10 TAPSE: 1.3 cm AR Vmax: 3.71 cm/s Additional Vessels Name Value Ao Ascendin.4 cm Findings: Left Ventricle: Normal size left ventricle. Severely reduced systolic LV function. The ejection fraction is estimated to be 20-25 %. There is paradoxic septal motion suggestive of bundle branch block, paced cardiac rhythm, or prior cardiac surgery. Right Ventricle: Normal size right ventricle. Moderately reduced RV function. There is a pacemaker lead noted in the right ventricle. Left Atrium: The left atrium is moderately dilated. Right Atrium: The right atrium is mildly dilated. There is a pacemaker lead noted in the right atrium. Mitral Valve: The mitral valve is normal in appearance and function. Moderate mitral valve regurgitation is present. Aortic Valve: Minimal aortic cusp calcification is noted. Moderate aortic valve regurgitation is present. Tricuspid Valve: The tricuspid valve is normal in appearance and function. Severe tricuspid regurgitation is present. The pulmonary artery pressure is moderately increased. Pulmonic Valve: The pulmonic valve is normal in appearance and function. Trivial pulmonic valve regurgitation. Aorta: The aorta is normal. Pericardium: No pericardial effusion. Exam Comments: Compared to the previous echo of September 08, 2016, the EF has decreased.. (No Signature Object) Patient: ENRIQUE MCKENNA Study Date: 02/21/2017 Page 2 of 2 09:46 AM [id number]
--- NOTE | 2017-02-21 15:07 | ASMTCMCOM ---
CM Note CM Note Notes: 02/21/2017 Case Management Note Pt admitted for CHF, currently diuresising. Per RN pt uses home O2. PT eval pending. Case management d/c poc: TBD awaiting PT eval for guidance. Case Management to follow. Date Signed: 02/21/2017 03:07 PM Electronically Signed By:Maritza Abarca RN
[2017-02-21] MEDS: WARFARIN SODIUM 3 MG TAB PO SCH (15:31)
--- NOTE | 2017-02-21 18:27 | GCON ---
[f rep st] CONSULTATION CARDIAC CONSULTATION DATE OF CONSULTATION: 02/21/2017 CHIEF COMPLAINT: Shortness of breath. HISTORY OF PRESENT ILLNESS: The patient is an 89-year-old male who is typically followed by Dr. Mittal . He presented to the hospital complaining of progressive shortness of breath, lower extremity edema , and weight gain and found to be in congestive heart failure. He has been following his weights on a regular basis and has noted about a 10 pound weight gain over the last 2 weeks. He has also had in creased lower extremity edema and shortness of breath. His symptoms progressed the day of admission with fairly significant shortness of breath with minimal exertion. He also noted some when bending o nancy to tie his shoes. On admission to the hospital, his BNP was elevated at 17,000. He was started on IV Lasix and is diuresing. His other history includes chronic renal insufficiency, and his creati nine is currently 1.5. It has been as high as 2.0 in the past. 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 His pacemaker was initially placed on December 04. He presented back to our office just under 2 weeks later complaini ng of fatigue and his atrial lead had dislodged. He had a revision of his atrial lead and a week lat er presented back to the hospital complaining of left upper extremity swelling. He was found to have an extensive DVT with thoracic outlet concerns. He was started on Coumadin, and his INR is therapeu tic. 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 SOCIAL HISTORY: He was brought into the hospital by his daughter. His current power of erisa attorney is Janki who is his daughter. He currently denies any tobacco or drug use. HOME MEDICATIONS: Pravastatin 10 mg daily, Synthroid 100 mcg daily, amlodipine 2.5 mg daily, melaton in 3 mg at bedtime, Tylenol p.r.n. for pain, amiodarone 200 mg daily, Coumadin 3 mg daily except for 4.5 mg on . ALLERGIES: Penicillin and tetanus vaccine. REVIEW OF SYSTEMS: Negative except for what is stated in the H and P. PHYSICAL EXAMINATION: GENERAL: The patient appears in no acute distress. VITALS: Blood pressure 9 6/69, heart rate 101, oxygen saturation of 94% on 2 L of oxygen, afebrile. LUNGS: Crackles ausculta silvia at the bilateral bases, right greater than left. CARDIAC: Regular rate and rhythm without any s ignificant murmurs, rubs, or gallops appreciated. ABDOMEN: Mildly distended without any discomfort to palpation. EXTREMITIES: Mild edema bilaterally, right greater than left. NEUROLOGIC: Nonfocal. PSYCHIATRIC: Mood and affect appropriate. SKIN: No obvious rashes or ecchymosis identified. LABORATORY: Troponin 0.023. BNP 17,100. Sodium 139, potassium 4.3, chloride 108, bicarb 19, BUN 26 , creatinine 1.5. INR 2.61. CBC: WBC is 5.6, hemoglobin 11.7, hematocrit 35.5, platelets 176. DIAGNOSTIC STUDIES: Chest x-ray shows some mild congestive heart failure. EKG shows AV pacing at a rate of 100 beats per minute. ASSESSMENT: The patient is an 89-year-old male with a history of diastolic congestive heart failure who presents with a heart failure exacerbation. PLAN: 1. Diastolic congestive heart failure. An echocardiogram will be checked to ensure he does not have a tachycardia-induced cardiomyopathy. His pacemaker is currently set at 100 beats per minute to red uce his PVC burden. Unfortunately in elderly, this can cause weakening of the heart muscle. His ech o is currently pending. His weight is up approximately 10 pounds. He has been started on Lasix 20 m g IV b.i.d., and he is diuresing. We will need to keep a close eye on his renal function. He will l ikely need to be discharged on low-dose Lasix long-term. 2. History of frequent PVCs with associated fatigue. He is status post pacemaker with rate set at 1 00 to help reduce his PVC burden. He is also on amiodarone which we will continue. 3. History of extensive left upper extremity DVT post pacemaker placement. He has also had a DVT in his lower extremity years ago. He is currently on Coumadin and will need to remain on Coumadin as l harrison as he can tolerate it. His INR is therapeutic. 4. Chronic renal insufficiency, currently stable at 1.5. This will be followed daily. 5. Hypertension, adequately controlled on his current medical regimen. 6. The patient's power of erisa attorney, Janki, was called and voice message left with updates on her f ather's current care. /[id number]/MODL
[2017-02-21] MEDS: PRAVASTATIN SODIUM 10 MG TAB PO SCH (20:27)
[2017-02-21] MEDS: MELATONIN 3 MG TAB PO SCH (20:27)
[2017-02-22] MEDS: LEVOTHYROXINE 100 MCG TAB PO SCH (05:22)
[2017-02-22 06:03] LABS: INR 2.56 (0.83-1.16); PROTIME(PATIENT) 27.5 SEC (12.0-15.0)
[2017-02-22 06:05] LABS: ANION GAP 13 mEq/L (8-16); CALCIUM 8.5 mg/dL (8.5-10.4); CARBON DIOXIDE 18 mEq/l (22-31); CHLORIDE 108 mEq/L (97-110); CREATININE 1.6 mg/dL (0.7-1.3); GLOMERULAR FILTRATION RATE 41; GLUCOSE 99 mg/dL (70-100); POTASSIUM 4.6 mEq/L (3.5-5.2); SODIUM 139 mEq/L (134-144)
[2017-02-22] MEDS: FUROSEMIDE 20 MG/2 ML VIAL IVP SCH ×2 (09:37→15:36)
[2017-02-22] MEDS: AMIODARONE HCL 200 MG TAB PO SCH (09:37)
--- NOTE | 2017-02-22 10:52 | PDCARPN ---
Cardiology Progress Note Chief Complaint: SOB Assessment/Plan: Assessment: Mann is a 89 y/o with a history of frequent PVC's and bradycardia s/p pacemaker placement. His pacer lower rate was set at 100BPM to reduce his PVC burden. Unfortunately, he was admitted with CHF and found to have a new CMP ( likely pacer induced) with EF of 20-25%. His lower rate has been adjusted to 60BPM. He is being diuresed with IV lasix. His other history includes CRI and LUE DVT post pacer on Coumadin. Plan: 1. CMP likely pacer medicated- pacer rate reduced from 100 to 60 BPM. Repeat limited echo in 2 weeks. No BB or SONJA-I secondary to hypotension. 2. Acute systolic CHF- Continue Lasix 20mg IV BID. He is down 2 pounds from yesterday. 3. CRI- continue to monitor currently 1.6. 4. PVC's- on Amiodarone. Currently in NSR without PVC's 5. s/p pacer 6. LUE DVT- on Coumadin. 02/22/17 15:26 Subjective: SOB has improved. He denies any CP or palpitations Objective: Vital Signs (8 Hrs) Temp Pulse Resp BP Pulse Ox 02/22/17 07:42 36.4 C 66 24 H 115/70 93 02/22/17 05:08 36.2 C 81 22 H 116/92 H 93 Intake/Output (24 Hrs) 02/21/17 02/22/17 02/23/17 05:59 05:59 05:59 Intake Total 770 Output Total 677 100 Balance 93 -100 Intake: Oral (ml) 770 Output: Urine (ml) 677 100 Toilet 177 Urinal 500 100 Other: Weight 80.7 kg Number of Voids Toilet 1 Result Diagrams: 02/21/17 03:45 02/22/17 04:24 Telemetry: NSR - Physical Exam Constitutional: WDWN Cardiovascular: regular rate and rhythm, no rubs, no gallops, other (bilateral lower extremity edema.) Respiratory: inspiratory crackles Neurologic: AAOx3 ICD10 Worksheet Patient Problems: Problems Problem Status Onset CHF (congestive heart failure) Acute Dyspnea Acute Renal insufficiency Acute DVT (deep venous thrombosis) Acute PVC (premature ventricular contraction) Acute S/P placement of cardiac pacemaker Acute
--- NOTE | 2017-02-22 14:19 | HOSPPROG ---
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 acute on chronic HF - Looks like his baseline weight is around 78 kg, currently 81.2 kg. No recent echo available for review. -check echo -cont diuresis -fluid and salt restrict -monitor I/Os, daily weights acute hypoxemic respiratory failure 2/2 above - may require home O2. Baseline is no supplemental O2. acute on CKD 3 - baseline appears to be 1.2-1.3 currently 1.5. May be a cardiorenal component -follow Cr closely with diuresis QT prolongation - monitor electrolytes. pt paced. on tele. continue amiodarone as per cards. H/O DVT on coumadin - INR therapeutic. Pharmacy to dose coumadin. HTN - HLD - continue statin. PVD - on coumadin, statin. H/O bradycardia and PVC's, hx of PPM -PPM rate lowered from 100 to 60 bpm Full code Plan: -Cont inpatient -Cont Lasix 20mg IV BID, still with volume overload -D/C Amlodipine. If BP can tolerate would consider starting BB vs SONJA-I -Cont Coumadin, INR in a.m. -Labs in a.m. -PT/OT -May need SNF Subjective: Feels less SOB. Still on supplemental O2. Overall stable. Still with leg swelling, but improving. Afebrile. Objective: Vital Signs Temp Pulse Resp BP Pulse Ox 36.6 C 63 20 103/63 95 02/22/17 12:06 02/22/17 12:06 02/22/17 12:06 02/22/17 12:06 02/22/17 12:06 Laboratory Results 02/22/17 04:24 02/21/17 02/22/17 02/23/17 05:59 05:59 05:59 Intake Total 770 Output Total 677 100 Balance 93 -100 PT 27.5 SEC (12.0-15.0) H 02/22/17 04:24 INR 2.56 (0.83-1.16) H 02/22/17 04:24 - Physical Exam Constitutional: no apparent distress, appears nourished Eyes: PERRL, EOMI Ears, Nose, Mouth, Throat: moist mucous membranes, hearing normal Cardiovascular: regular rate and rhythym, edema Respiratory: no respiratory distress, reduced air movement Gastrointestinal: normoactive bowel sounds, soft, non-tender abdomen Genitourinary: no bladder fullness Skin: warm, normal color Musculoskeletal: generalized weakness Neurologic: AAOx3 Psychiatric: interacting appropriately, not anxious, not encephalopathic, thought process linear Lymph, Heme, Immunologic: No petechiae ICD10 Worksheet Patient Problems: Problems Problem Status Onset CHF (congestive heart failure) Acute Dyspnea Acute Renal insufficiency Acute DVT (deep venous thrombosis) Acute PVC (premature ventricular contraction) Acute S/P placement of cardiac pacemaker Acute
[2017-02-22] MEDS: WARFARIN SODIUM 3 MG TAB PO SCH (15:36)
[2017-02-22] MEDS: PRAVASTATIN SODIUM 10 MG TAB PO SCH (20:19)
[2017-02-22] MEDS: MELATONIN 3 MG TAB PO SCH (20:20)
[2017-02-23 06:09] LABS: % IMMATURE GRANULYOCYTES 0.6 % (0.0-1.1); ABSOLUTE IMMATURE GRANULOCYTES 0.03 10^3/uL (0.00-0.10); ABSOLUTE NRBC COUNT 0.02 10^3/uL (0-0.01); ADD DIFF? NO; ADD MORPH? NO; ADD SCAN? NO; ATYPICAL LYMPHOCYTE FLAG 0 (0-99); FRAGMENT RBC FLAG 0 (0-99); HEMOGLOBIN 11.9 g/dL (13.7-17.5); LEFT SHIFT FLG 0 (0-99); LIPEMIA HEMOLYSIS FLAG 80 (0-99); MEAN CELL HEMOGLOBIN 29.9 pg (27.9-34.1); MEAN CELL HEMOGLOBIN CONCENTR. 33.1 g/dL (32.4-36.7); MEAN CELL VOLUME 90.5 fL (81.5-99.8); MEAN PLATELET VOLUME 10.8 fL (8.7-11.7); NRBC-AUTO% 0.4 % (0.0-0.2); PLATELET CLUMPS FLAG 0 (0-99); PLATELET COUNT 177 10^3/uL (150-400); RED BLOOD CELL COUNT 3.98 10^6/uL (4.40-6.38); RED CELL DISTRIBUTION WIDTH 16.7 % (11.5-15.2)
[2017-02-23 06:22] LABS: ANION GAP 13 mEq/L (8-16); CALCIUM 8.4 mg/dL (8.5-10.4); CARBON DIOXIDE 20 mEq/l (22-31); CHLORIDE 104 mEq/L (97-110); CREATININE 1.5 mg/dL (0.7-1.3); GLOMERULAR FILTRATION RATE 44; GLUCOSE 83 mg/dL (70-100); POTASSIUM 4.2 mEq/L (3.5-5.2); SODIUM 137 mEq/L (134-144)
[2017-02-23 06:33] LABS: INR 2.89 (0.83-1.16); PROTIME(PATIENT) 30.1 SEC (12.0-15.0)
[2017-02-23] MEDS: LEVOTHYROXINE 100 MCG TAB PO SCH (08:11)
[2017-02-23] MEDS: AMIODARONE HCL 200 MG TAB PO SCH (08:11)
[2017-02-23] MEDS: FUROSEMIDE 20 MG/2 ML VIAL IVP SCH ×2 (08:11→15:12)
--- NOTE | 2017-02-23 10:56 | PDCARPN ---
Cardiology Progress Note Chief Complaint: SOB Assessment/Plan: Assessment: Mann is a 89 y/o with a history of frequent PVC's and bradycardia s/p pacemaker placement. His pacer lower rate was set at 100BPM to reduce his PVC burden. Unfortunately, he was admitted with CHF and found to have a new CMP ( likely pacer induced) with EF of 20-25%. His lower rate has been adjusted to 60BPM. He is being diuresed with IV lasix. His other history includes CRI and LUE DVT post pacer on Coumadin. Plan: 1. CMP likely pacer medicated- pacer rate reduced from 100 to 60 BPM. Repeat limited echo in 2 weeks. No BB or SONJA-I secondary to hypotension. 2. Acute systolic CHF- Continue Lasix 20mg IV BID. He is slow to diurese. Continue working with PT to help mobilize fluid. 3. CRI- continue to monitor currently stable 4. PVC's- on Amiodarone. Currently in NSR without PVC's 5. s/p pacer 6. LUE DVT- on Coumadin. 7. difficulty swallowing- he is complaining of the sensation of the food getting stuck with regurgitation x6 weeks. Zenker diverticulum? Further recs per PCP. Likely d/c to SNF in 1-2 days 02/23/17 10:53 Subjective: He is feeling better today. His SOB is back to baseline. He denies any CP Objective: Vital Signs (8 Hrs) Temp Pulse Resp BP Pulse Ox 02/23/17 07:58 36.6 C 65 16 113/69 90 L 02/23/17 04:00 36.5 C 62 17 96/64 L 97 Intake/Output (24 Hrs) 02/22/17 02/23/17 02/24/17 05:59 05:59 05:59 Intake Total 770 1470 Output Total 677 1150 125 Balance 93 320 -125 Intake: Oral (ml) 770 1470 Output: Urine (ml) 677 1150 125 Toilet 177 450 Urinal 500 700 125 Other: Weight 80.7 kg 80.6 kg Number of Voids Toilet 1 Number of Stools Toilet 1 tele NSR Result Diagrams: 02/23/17 04:41 02/23/17 04:41 - Physical Exam Constitutional: WDWN Cardiovascular: regular rate and rhythm Peripheral Pulses: 2+: dorsalis-pedis (R), dorsalis-pedis (L) Respiratory: inspiratory crackles (lung bases), other (mild edema bilaterally) Skin: other Neurologic: AAOx3 ICD10 Worksheet Patient Problems: Problems Problem Status Onset CHF (congestive heart failure) Acute Dyspnea Acute Renal insufficiency Acute DVT (deep venous thrombosis) Acute PVC (premature ventricular contraction) Acute S/P placement of cardiac pacemaker Acute
--- NOTE | 2017-02-23 12:05 | HOSPPROG ---
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 acute on chronic HF - Looks like his baseline weight is around 78 kg, currently 81.2 kg. No recent echo available for review. -cont diuresis -fluid and salt restrict -monitor I/Os, daily weights acute hypoxemic respiratory failure 2/2 above - may require home O2. Baseline is no supplemental O2. acute on CKD 3 - baseline appears to be 1.2-1.3 currently 1.5. May be a cardiorenal component -follow Cr closely with diuresis QT prolongation - monitor electrolytes. pt paced. on tele. continue amiodarone as per cards. H/O DVT on coumadin - INR therapeutic. Pharmacy to dose coumadin. HTN - HLD - continue statin. PVD - on coumadin, statin. H/O bradycardia and PVC's, hx of PPM -PPM rate lowered from 100 to 60 bpm Dysphagia: -onset 3 months ago -some progression -solids mostly. No difficulty with fluids -No reported aspiraton Full code Plan: -Cont inpatient -Cont Lasix 20mg IV BID, still with volume overload -D/C Amlodipine. If BP can tolerate would consider starting BB vs SONJA-I. Not at this time as BP is still soft -Cont Coumadin, INR in a.m. -Speech to provide initial evaluation. Pending eval may need GI consult as well. No reported aspiration. -PT/OT -May need SNF D/W cardiology Subjective: Breathing is getting better. Less SOB. No CP. Difficulty with swallowing x 3 months. No reported aspiraton Objective: Vital Signs Temp Pulse Resp BP Pulse Ox 36.6 C 65 16 113/69 90 L 02/23/17 07:58 02/23/17 07:58 02/23/17 07:58 02/23/17 07:58 02/23/17 07:58 Laboratory Results 02/23/17 04:41 02/23/17 04:41 02/22/17 02/23/17 02/24/17 05:59 05:59 05:59 Intake Total 770 1470 Output Total 677 1150 125 Balance 93 320 -125 PT 30.1 SEC (12.0-15.0) H 02/23/17 04:41 INR 2.89 (0.83-1.16) H 02/23/17 04:41 - Physical Exam Constitutional: no apparent distress, appears nourished Eyes: PERRL, EOMI Ears, Nose, Mouth, Throat: moist mucous membranes, hearing normal Cardiovascular: regular rate and rhythym, edema (1-2+ edema) Respiratory: reduced air movement Gastrointestinal: normoactive bowel sounds, soft, non-tender abdomen Skin: warm Neurologic: AAOx3, sensation intact bilaterally Psychiatric: interacting appropriately, not anxious, not encephalopathic ICD10 Worksheet Patient Problems: Problems Problem Status Onset CHF (congestive heart failure) Acute Dyspnea Acute Renal insufficiency Acute DVT (deep venous thrombosis) Acute PVC (premature ventricular contraction) Acute S/P placement of cardiac pacemaker Acute
[2017-02-23] MEDS: PANTOPRAZOLE SODIUM 40 MG TAB PO SCH (15:12)
[2017-02-23] MEDS ORDERED: WARFARIN SODIUM 3 MG TAB PO SCH (16:00)
--- NOTE | 2017-02-23 16:28 | ASMTCMCOM ---
CM Note CM Note Notes: CM met w/ pt for dispo planning. PT is recommending SNF. Pt reports that he does not have any interested in going to SNF if it is going to cost him money. Pt reports that the last time he was [facility] for 4-5 days it costed him more than $1000. Pt reports that he lives w/ his son and he reports that his son dispenses his medication for him and checks his BP daily. CM spoke w/ Janki, daughter and OSMAN. Her hope would be for pt to go to rehab. Janki reports that if pt does not choose rehab HC with [facility] would be the next best option. CM left a msg for Ulisses in the billing department at [facility] to inquire about cost of rehab. Cost of rehab would be $160/a day for 24 days until Medicare will pay 100%. CM called Janki and informed her of the cost. Janki reports that she will speak to pt and discuss dispo plan more tomorrow. CM to follow. Plan: SNF vs HC Date Signed: 02/23/2017 04:28 PM Electronically Signed By:JOSE Adan
[2017-02-23] MEDS: PRAVASTATIN SODIUM 10 MG TAB PO SCH (20:53)
[2017-02-23] MEDS: MELATONIN 3 MG TAB PO SCH (20:53)
[2017-02-24 03:55] VITALS: TEMP 97.5
[2017-02-24 04:03] LABS: INR 3.19 (0.83-1.16); PROTIME(PATIENT) 32.5 SEC (12.0-15.0)
[2017-02-24] MEDS: LEVOTHYROXINE 100 MCG TAB PO SCH (05:16)
[2017-02-24 07:42] VITALS: RESP 20
[2017-02-24] MEDS: FUROSEMIDE 20 MG/2 ML VIAL IVP SCH (08:17)
[2017-02-24] MEDS: PANTOPRAZOLE SODIUM 40 MG TAB PO SCH (08:17)
[2017-02-24] MEDS: AMIODARONE HCL 200 MG TAB PO SCH (08:17)
[2017-02-24 11:11] VITALS: BP 118/65; PULSE 85; O2SAT 93
[2017-02-24] MEDS ORDERED: FUROSEMIDE 20 MG/2 ML VIAL IVP ONE (11:34)
--- NOTE | 2017-02-24 11:41 | PDHOMEO2F ---
Home Oxygen Face to Face Home Orders: I certify that a physician or a nurse practitioner or physician's educational/development assistant has had a [id number]-[id number] encounter with this patient on the date of this order due to the diagnosis listed, which relates to the primary reason the patient requires home oxygen. Alternative treatments have been tried, or considered, and deemed ineffective. It is anticipated that supplemental oxygen will result in improvement with treatment. Home oxygen qualifying diagnosis: hypoxemia SpO2 on room air (%): 78 Frequency of home oxygen needed: with activity, continuous Home oxygen liters per minute: 2 Home oxygen delivery device: nasal cannula Concentrator: Yes E-tanks for mobility and back up: Yes If ordering portable O2, is the patient mobile in the home?: Yes I certify that, based on these findings, the home oxygen is medically necessary for this patient for the following length of time. Length of time home oxygen needed: 99 years
--- NOTE | 2017-02-24 11:42 | PDIAF ---
- Diagnosis Diagnosis: hear failure - Medication Management Discharge Medications: Medications to Continue on Transfer Levothyroxine [Synthroid 100 mcg (*)] 100 mcg PO DAILY06 03/02/15 [Last Taken ] Pravastatin Sodium 10 mg PO HS 03/02/15 [Last Taken 02/20/17] Melatonin [Melatonin 3 MG (*)] 3 mg PO HS 11/30/16 [Last Taken 12/25/16] Acetaminophen [Arthritis Pain Relief] 650 mg PO Q6-8PRN PRN #90 tablet.er [Last Taken Unknown] Amiodarone HCl [Pacerone (*)] 200 mg PO DAILY 12/26/16 [Last Taken 02/20/17] Warfarin Sodium [Coumadin 3MG (*)] 3 mg PO SUMOTUWEFRSA@16 02/21/17 [Last Taken 02/20/17] Warfarin Sodium [Coumadin 3MG (*)] 4.5 mg PO TH@16 02/21/17 [Last Taken 02/16/17 ] Furosemide [Lasix 20 MG (*)] 20 mg PO DAILY #30 tab 02/24/17 [Last Taken Unknown ] Pantoprazole Sodium [Protonix 40mg (*)] 40 mg PO DAILY #30 tab 02/24/17 [Last Taken Unknown] Discharge Medications: Refer to the Discharge Home Medication list for PRN reason. - Orders Services needed: Home Care, Registered Nurse, Physical Therapy, Occupational Therapy Home Care Face to Face: I certify that this patient was under my care and that I had the required iizk-ab-icmy encounter meeting the encounter requirements on the discharge day. My findings support the fact that the patient is homebound as defined in Home Care Face to Face Continued: CMS Chapter 7 Medicare Benefits Manual 30.1.1 , The condition of the patient is such that there exists a normal inability to leave home and consequently, leaving home would require a considerable and taxing effort. Diet Recommendation: cardiac -low fat low salt Diet Texture: Regular Texture Diet, Thin Liquids, Meds Whole w/Liquids - Follow Up Care Current Providers and Referrals: Nam Vargas MD [Primary Care Provider] - As per Instructions Олег Mittal MD [Medical Doctor] - 03/15/17 3:15 am (Echo at [facility])
--- NOTE | 2017-02-24 11:48 | PDDCSUM ---
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 Found to have CHF and started on IV Lasix. Has diuresed well. Will not be started on 20mg oral daily. INR is slightly elevated and coumadin will be held until Monday He is to f/u with Cardiology in March He has dysphasia and needs a GI eval for endoscopy. After discussing his case with GI, we decided that the patient will f/u with GI in an OP setting. GI will be contacting him. Coumadin will need to be held He is being d/c home with [facility] to provide RN, PT, OT He is on RA at rest but with exertion requires 2LO2 DDX: acute on chronic HF acute hypoxemic respiratory failure acute on CKD 3 - baseline appears to be 1.2-1.3 currently 1.5. May be a cardiorenal component -follow Cr closely with diuresis QT prolongation - monitor electrolytes. pt paced. on tele. continue amiodarone as per cards. H/O DVT on coumadin HTN, holding Amlodipine. Would likely benefit from BB and SONJA-I if bp can handle HLD - continue statin. PVD - on coumadin, statin. H/O bradycardia and PVC's, hx of PPM -PPM rate lowered from 100 to 60 bpm Dysphagia: -onset 3 months ago -some progression -solids mostly. No difficulty with fluids -No reported aspiraton Exam: NAD AAOX3 RRR SCATTERED RHONCHI, NORMAL WOB S/NT/ND 1+ LE EDEMA D/C MEDS: SEE MED REC F/U: PER ABOVE TOTAL TIME SPENT ON D/C IS 35 MINS. D/W CARDIOLOGY, NURSE, AND CM.
--- NOTE | 2017-02-24 15:16 | PDIAF ---
- Diagnosis Diagnosis: hear failure, The patient will go to SNF. - Medication Management Discharge Medications: Medications to Continue on Transfer Levothyroxine [Synthroid 100 mcg (*)] 100 mcg PO DAILY06 03/02/15 [Last Taken ] Pravastatin Sodium 10 mg PO HS 03/02/15 [Last Taken 02/20/17] Melatonin [Melatonin 3 MG (*)] 3 mg PO HS 11/30/16 [Last Taken 12/25/16] Acetaminophen [Arthritis Pain Relief] 650 mg PO Q6-8PRN PRN #90 tablet.er [Last Taken Unknown] Amiodarone HCl [Pacerone (*)] 200 mg PO DAILY 12/26/16 [Last Taken 02/20/17] Warfarin Sodium [Coumadin 3MG (*)] 3 mg PO SUMOTUWEFRSA@16 02/21/17 [Last Taken 02/20/17] Warfarin Sodium [Coumadin 3MG (*)] 4.5 mg PO TH@16 02/21/17 [Last Taken 02/16/17 ] Furosemide [Lasix 20 MG (*)] 20 mg PO DAILY #30 tab 02/24/17 [Last Taken Unknown ] Pantoprazole Sodium [Protonix 40mg (*)] 40 mg PO DAILY #30 tab 02/24/17 [Last Taken Unknown] Discharge Medications: Refer to the Discharge Home Medication list for PRN reason. - Orders Services needed: Registered Nurse, Physical Therapy, Occupational Therapy Diet Recommendation: cardiac -low fat low salt Diet Texture: Regular Texture Diet, Thin Liquids, Meds Whole w/Liquids - Follow Up Care Current Providers and Referrals: Nam Vargas MD [Primary Care Provider] - As per Instructions Олег Mittal MD [Medical Doctor] - 03/15/17 3:15 am ([facility] at [facility])
--- NOTE | 2017-02-24 18:00 | ASDISCHSUM ---
Discharge Information Plan Status:SNF Medically Cleared to Leave: Discharge Date:02/24/2017 03:55 PM CM D/C Disposition:Longterm Facility ADT D/C Disposition:Longterm Facility Projected Discharge Date:02/24/2017 11:00 AM Transportation at D/C:Wheelchair Van Discharge Delay Reason: Follow-Up Date:02/24/2017 11:00 AM Discharge Slot: Final Diagnosis: Placement Information Referral Type:*Halfway/SNF Referral ID:[id number] Provider Name:[facility] Address 1:[address] Address 2: City:[place] Selection Factors: State:[place] Referral Type:*Home Health Care Services Referral ID:[id number] Provider Name:[facility] Address 1:[address] Address 2: City:[place] Selection Factors: State:[place] Patient Contact Information Contact Name:SARAH PENNINGTON Relationship:Daughter Address:[address] Work Phone: [place] Phone: State/Zip Code:[place] [address] Email: Financial Information Financial Class:Medicare Advantage Plans Primary Plan Desc:[employer] [facility] ADVANTAGE PLAN Primary Plan Number:[id number] Secondary Plan Desc: Secondary Plan Number: Assessment Information [facility] CM Progress Note CM Note CM Note Notes: 02/21/2017 Case Management Note Pt admitted for CHF, currently diuresising. Per RN pt uses home O2. PT eval pending. Case management d/c poc: TBD awaiting PT eval for guidance. Case Management to follow. Date Signed: 02/21/2017 03:07 PM Electronically Signed By:Maritza Abarca RN [facility] CM Progress Note CM Note CM Note Notes: CM met w/ pt for dispo planning. PT is recommending SNF. Pt reports that he does not have any interested in going to SNF if it is going to cost him money. Pt reports that the last time he was [facility] for 4-5 days it costed him more than $1000. Pt reports that he lives w/ his son and he reports that his son dispenses his medication for him and checks his BP daily. CM spoke w/ Janki, daughter and OSMAN. Her hope would be for pt to go to rehab. Janki reports that if pt does not choose rehab [facility] with [facility] would be the next best option. DONITA left a msg for Ulisses in the billing department at [facility] to inquire about cost of rehab. Cost of rehab would be $160/a day for 24 days until Medicare will pay 100%. DONITA called Janki and informed her of the cost. Janki reports that she will speak to pt and discuss dispo plan more tomorrow. CM to follow. Plan: SNF vs HC Date Signed: 02/23/2017 04:28 PM Electronically Signed By:JOSE Adan Case Management Discharge Plan Note Case Management Discharge Discharge Order Complete? Answers: Yes Patient to Obtain Answers: Other Notes: [facility] Transportation Arranged Answers: Other Notes: [facility] will Pick (Date 02/24/2017 12:00 AM & Time) Family Notified Answers: Yes Discharge Comments Notes: Pt initially this AM was going to go home w/[facility] as he was refusing SNF b/c of co-pay. Discussed w/pt's daughter Janki who said insurance issues straightened out and pt has met OOP max and therefore has no co-pays through the end of the year. Janki talked to pt about this and he was then agreeable to going to SNF; I met w/pt to confirm. Discussed w/Dr taylor, NEELIMA Roger, and RN. spoke w/Crissy at [facility] which is where pt and daughter would like for him to go since Janki works there; Crissy confirmed that they could accept pt today and set up transport. DC orders/info sent through [employer] to [place]. RN, Janki, notified other daughter, Ivon of this change in plans and she has spoke w/sister. Date Signed: 02/24/2017 05:51 PM Electronically Signed By:Abena Teague RN Intervention Information Intervention Type:*SORIA-Signed Date of Service:02/21/2017 12:27 PM Patient Type:Inpatient Staff Member:Lin Zimmerman Hours: Discipline: Severity: Comment:
--- NOTE | 2017-03-01 16:33 | PQFORM ---
PHYSICIAN QUERY FORM Needs Your Response This query form is being sent to you to assure this patient record is coded properly. Please respond to the question below: TRUCKMAN QUESTION: Dear Dr. Lofton, In reviewing this patient medical record, it was noted the patient had the diagnosis of "Congestive Heart Failure." In Dr. Cardona's Consultation dated , patient was diagnosed with "Diastolic CHF. Started on Lasix 20mg." In the Cardiology progress notes dated 02/22-02/23 patient was diagnosed with "Acute Systolic CHF. Continue with Lasix 20mg." In the 02/21 Echocardiogram stated in the conclusions, patient had "Severely reduced Systolic LV function. Ejection Fraction was 20-25%." After study, can the heart failure be further specified? 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 [phone] INSTRUCTIONS FOR RESPONSE: Answer question by clicking on the "Edit Document" button. Move cursor to area below the stars. When complete, hit "Save." Click on the "Sign" button, then click "Sign" again. Type in your PIN and hit "Enter." MTDD
== END 2017-02-24 15:55 | DRG 291 ==
LOC: F2W 23:32 → OBSVTOIN 02-21 11:20
PROVIDERS: ADMIT Family Medicine; ATTEND Family Medicine
DX: I13.0 Hypertensive heart and chronic kidney disease with heart failure and stage 1 through stage 4 chronic kidney disease, or unspecified chronic kidney disease (principal); I50.21 Acute systolic (congestive) heart failure; J96.01 Acute respiratory failure with hypoxia; N17.9 Acute kidney failure, unspecified; N18.3 Chronic kidney disease, stage 3 (moderate); E78.5 Hyperlipidemia, unspecified; I73.9 Peripheral vascular disease, unspecified; R13.10 Dysphagia, unspecified; E03.9 Hypothyroidism, unspecified; M48.061 Spinal stenosis, lumbar region without neurogenic claudication; Z86.718 Personal history of other venous thrombosis and embolism; Z95.0 Presence of cardiac pacemaker; Z79.01 Long term (current) use of anticoagulants
CPT/HCPCS: 82947-QW; 92610-GN; 97116-GP; 97161-GP; G8978-GP-CJ; G8979-GP-CI; G8996-GN-CH; G8997-GN-CH; G8998-GN-CH; J1940